=== PATIENT | male | born 1935 | race Caucasian/White ===

== ENCOUNTER → 2017-08-27 | Day surgery (SDC) | payer OTHER, MEDICARE ==
[2017-08-14 13:26] VITALS: BMI 22.0
[~2017-08-27] VITALS: Ht 185.4 cm; Wt 123.0 kg
[~2017-08-27] MED LIST: 500ML BSS 0.3ML EPI 1:1000PF IRRIG ONE; ACETAMINOPHEN 325 MG TAB PO PRN; AMVISC PLUS 0.8ML SYRINGE INT OCU ONE; ASPCH81X PO; ATOR10TA82 PO; ATROPINE SULFATE 0.1 MG/ML 5ML SYR IV PRN; BSS FLUSH ONE; CARV12.52 PO; DOXA-10 PO; EpHEDrine SULFATE INJ 50 MG/ML AMP IV PRN; EpINEphrine INJ 1MG/ML AMP 1 MG/ML AMP ONE; GLIP1TAB91 PO; HydrALAZINE HCL 20 MG/ML VIAL IV. ONE; HydrALAZINE HCL 20 MG/ML VIAL ONE; LABETALOL HCL IV 5 MG/ML 20ML IV ONE; LACTATED RINGER'S 1000ML 500 ML IV SCH; LIDOCAINE 3.5% OPH GEL PER APPLICATION CHARGE ONE; LIDOCAINE HCL 1% MPF 2 ML VIAL ONE; LISI40TA PO; MIDAZOLAM HCL 1 MG/ML 2ML VIAL ONE; NURSING VERBAL MED ORDER ONE; OCUCOAT 1 ML SOLN IO ONE; ONDANSETRON INJ 2 MG/ML 2 ML VIAL IV PRN; POVIDONE-IODINE OP SOLN 30 ML BTL ONE; PROPARACAINE 0.5% OP SOLN PER DROP CHARGE OPL SCH; TOBRAMYCIN/DEXAMETHASONE OPH OINT PER APPLN CHARGE ONE; WARF5TAB7 PO; WATER, STERILE FOR INJ 10 ML VIAL ONE
[2017-08-27 07:28] VITALS: Ht 185.4 cm; Wt 123.0 kg
[2017-08-27] MEDS: PHENYLEPHRINE HCL 2.5% OP SOLN PER DROP CHARGE OPL SCH ×2 (07:31→07:47)
[2017-08-27] MEDS: TROPICAMIDE 1% OP SOLN PER DROP CHARGE OPL SCH ×2 (07:32→07:49)
[2017-08-27] MEDS: CYCLOPENTOLATE HCL 1% OP SOLN PER DROP CHARGE OPL SCH ×2 (07:33→07:49)
[2017-08-27] MEDS: KETOROLAC 0.5% OP SOLN PER DROP CHARGE OPL SCH ×2 (07:34→07:50)
[2017-08-27] MEDS: GATIFLOXACIN OP SOLN PER DROP CHARGE OPL SCH ×2 (07:35→07:51)
--- NOTE | 2017-08-27 07:45 | History & Physical Bridge - [place] ---
H&P Re-Evaluation Bridge Note: I have examined the patient, reviewed the History & Physical and in the interval since the performance of the History & Physical I have noted the following changes of clinical significance: Diagnosis: Left Cataract Procedure: Left Cataract Removal with Lens Implant No changes noted
--- NOTE | 2017-08-27 08:53 | Discharge Instructions-SurgCtr ---
Discharge Instructions Date of Service Aug 27, 2017. Visit Reason for Visit: Cataract Left Eye Discharge Discharge Diagnosis / Problem: cataract Discharge Goals Goal(s): Improve function Activity Recommendations Activity Limitations: per Instructions/Follow-up section Anesthesia . Post Anesthesia Instructions: If you have had General Anesthesia or IV Sedation: * Do not drive today. * Resume driving when surgeon permits. * Do not make important decisions or sign legal documents today. * Call surgeon for: 1. Temperature elevations greater than 101 degrees F. 2. Uncontrollable pain. 3. Excessive bleeding. 4. Persistent nausea and vomiting. 5. Medication intolerance (nausea, vomiting or rash). * For nausea and vomiting use only clear liquids such as: tea, soda, bouillon until nausea subsides, then gradually increase diet as tolerated. * If you have any concerns or questions, call your surgeon's office. If physician is unavailable and it is an emergency, call 911 or go to the nearest emergency room. . Diet Recommendations Home Diet: resume previous diet Procedures Procedures Performed: Left Cataract Phacoemulsification With Intraocular Lens Implant Pending Studies Studies pending at discharge: no Medical Emergencies . Who to Call and When: Medical Emergencies: If at any time you feel your situation is an emergency, please call 911 immediately. . Non-Emergent Contact Non-Emergency issues call your: Chemistry Department Chair . . "Provider Documentation" section prepared by Abhishek Brandon. .
--- NOTE | 2017-08-27 08:54 | [facility] Operative Report ---
Operative Report Date of Service Aug 27, 2017. Operative Report 1. PREOPERATIVE DIAGNOSIS: Cataract of the left eye. 2. POSTOPERATIVE DIAGNOSIS: Same. 3. PROCEDURE: Phacoemulsification with intraocular lens implantation of the left eye. SURGEON: Dr. Abhishek Brandon. ANESTHESIA: Topical Lidocaine gel, 1% Non- Preserved intracameral Lidocaine, and monitored intravenous sedation. INDICATIONS FOR THE PROCEDURE: The patient is a 82 - year-old male with a history of cataract of the left eye causing significant visual impairment. The details of the proposed procedure were explained to the patient who asked appropriate questions and following discussion of all risks, benefits and alternatives agreed to have the procedure done. 4. OPERATION AND FINDINGS: DESCRIPTION OF PROCEDURE: After informed consent was obtained, the patient was brought to the Operating Room at the [facility]. The patient was placed in a supine position and then the left eye was prepped and draped in the usual sterile fashion for intraocular surgery. A drop of topical Lidocaine gel was placed in the operative eye. A wire lid speculum was then placed in the fornices. A corneal paracentesis was then created temporally. The Non-Preserved Lidocaine was then instilled into the anterior chamber. The anterior chamber was then pressurized with viscoelastic. A 2.0 mm clear corneal incision was then created temporally. A cystotome was inserted into the anterior chamber and used to create a tear in the anterior lens capsule. This capsular tear was then used to create a small flap and the flap was dragged in a counterclockwise direction in order to create a continuous curvilinear capsulorrhexis. Hydrodissection was accomplished with balanced salt solution. Phacoemulsification of the lens nucleus was then performed in a standard [id number]-cic-guxsren technique. The phaco time was 22 seconds with an average power of 13 %. The remaining cortical material was removed using irrigation aspiration. The capsular bag was then filled with viscoelastic. A [employer] MI60L +21.5 diopters lens was then loaded into the injector and injected into the capsular bag. The remaining viscoelastic was removed with the irrigation aspiration handpiece. The wound was hydrated and then checked and found to be watertight. The intraocular pressure was checked and found to be adequate. The wire lid speculum was removed and the patient's face was cleaned and dried. TobraDex ointment was placed in the inferior fornix. The patient was discharged to the Recovery Room having tolerated the procedure well. There were no complications. The patient will be seen tomorrow in the office for follow-up. I attest to the content of the Intraoperative Record and any orders documented therein. Any exceptions are noted below.
[2017-08-27 08:56] VITALS: TEMP 36.6
--- NOTE | 2017-08-27 09:22 | Anesthesia Progress Nt - [facility] ---
Anesthesia Post Op Note Date & Time Aug 27, 2017 at 09:18 Vital Signs Pain Intensity: 0 Vital Signs Past 12 Hours Date Time Temp Pulse Resp B/P (MAP) Pulse Ox O2 Delivery O2 Flow Rate FiO2 08/27/17 08:29 55 16 196/70 (112) 95 Room Air 08/27/17 08:26 198/87 (124) 08/27/17 07:40 48 16 207/96 (133) 94 Room Air 08/27/17 07:30 214/100 (138) 08/27/17 07:19 36.7 71 16 207/96 (133) 94 Room Air Notes Mental Status: alert / awake / arousable, participated in evaluation Pt Amnestic to Procedure: Yes Nausea / Vomiting: adequately controlled Pain: adequately controlled Airway Patency, RR, SpO2: stable & adequate BP & HR: stable & adequate Hydration State: stable & adequate Anesthetic Complications: no major complications apparent Mr. Johnson required several doses of hydralazine perioperatively for BP control. He has hx/o difficult to control BP and had not taken his antihypertensives on DOS (normally takes them at noon). Patient denied any vision changes, lightheadedness, headaches, chest pains or shortness of breath. He also endorsed that he was extremely nervous prior to surgery. Given that he was completely asymptomatic, I felt it was appropriate to treat this IV antihypertensives and proceed with surgery. This was done without incident. I spoke at length with patient and his both before and after surgery regarding management of his blood pressure. They know to go to ER if he experiences any symptoms that could indicate elevated BP (ROACH, vision changes, chest pains, etc) and they are also to call his primary care physician to make a follow up for further BP management as an outpatient (especially since he is due back here in several weeks for his other cataract). All questions were answered and patient was released under the care of his .
[2017-08-27 09:32] VITALS: BP 204/91; PULSE 76; O2SAT 96
== END | disposition home or self-care (01) ==
LOC: X.SURG 07:02
PROVIDERS: ATTEND Ophthalmology
DX: E11.36 Type 2 diabetes mellitus with diabetic cataract (principal); H26.9 Unspecified cataract; E78.5 Hyperlipidemia, unspecified; I48.91 Unspecified atrial fibrillation; N40.0 Benign prostatic hyperplasia without lower urinary tract symptoms; I87.2 Venous insufficiency (chronic) (peripheral); Z79.899 Other long term (current) drug therapy; Z79.01 Long term (current) use of anticoagulants; Z83.3 Family history of diabetes mellitus

== ENCOUNTER → 2017-09-17 | Day surgery (SDC) | payer OTHER, MEDICARE ==
[2017-09-05 09:44] VITALS: Ht 185.4 cm; Wt 77.3 kg
[~2017-09-17] VITALS: Ht 185.4 cm; Wt 77.3 kg
[~2017-09-17] MED LIST changes: -CARV12.52 PO; +CRG25 PO; -HydrALAZINE HCL 20 MG/ML VIAL IV. ONE; -LABETALOL HCL IV 5 MG/ML 20ML IV ONE; -NURSING VERBAL MED ORDER ONE; -ONDANSETRON INJ 2 MG/ML 2 ML VIAL IV PRN; -PROPARACAINE 0.5% OP SOLN PER DROP CHARGE OPL SCH; +PROPARACAINE 0.5% OP SOLN PER DROP CHARGE OPR SCH; -WATER, STERILE FOR INJ 10 ML VIAL ONE
[2017-09-17] MEDS: PHENYLEPHRINE HCL 2.5% OP SOLN PER DROP CHARGE OPR SCH ×2 (07:24→07:30)
[2017-09-17] MEDS: TROPICAMIDE 1% OP SOLN PER DROP CHARGE OPR SCH ×2 (07:25→07:31)
[2017-09-17] MEDS: CYCLOPENTOLATE HCL 1% OP SOLN PER DROP CHARGE OPR SCH ×2 (07:26→07:32)
[2017-09-17] MEDS: KETOROLAC 0.5% OP SOLN PER DROP CHARGE OPR SCH ×2 (07:27→07:33)
[2017-09-17] MEDS: GATIFLOXACIN OP SOLN PER DROP CHARGE OPR SCH ×2 (07:28→07:38)
--- NOTE | 2017-09-17 07:55 | History & Physical Bridge - [place] ---
H&P Re-Evaluation Bridge Note: I have examined the patient, reviewed the History & Physical and in the interval since the performance of the History & Physical I have noted the following changes of clinical significance: Diagnosis: Right Cataract Procedure: Right Cataract Removal with Lens Implant No changes noted
--- NOTE | 2017-09-17 08:39 | [facility] Operative Report ---
Operative Report Date of Service Sep 17, 2017. Operative Report 1. PREOPERATIVE DIAGNOSIS: Cataract of the right eye. 2. POSTOPERATIVE DIAGNOSIS: Same. 3. PROCEDURE: Phacoemulsification with intraocular lens implantation of the right eye. SURGEON: Dr. Abhishek Brandon. ANESTHESIA: Topical Lidocaine gel, 1% Non- Preserved intracameral Lidocaine, and monitored intravenous sedation. INDICATIONS FOR THE PROCEDURE: The patient is a 82 - year-old male with a history of cataract of the right eye causing significant visual impairment. The details of the proposed procedure were explained to the patient who asked appropriate questions and following discussion of all risks, benefits and alternatives agreed to have the procedure done. 4. OPERATION AND FINDINGS: DESCRIPTION OF PROCEDURE: After informed consent was obtained, the patient was brought to the Operating Room at the [facility]. The patient was placed in a supine position and then the right eye was prepped and draped in the usual sterile fashion for intraocular surgery. A drop of topical Lidocaine gel was placed in the operative eye. A wire lid speculum was then placed in the fornices. A corneal paracentesis was then created temporally. The Non-Preserved Lidocaine was then instilled into the anterior chamber. The anterior chamber was then pressurized with viscoelastic. A 2.0 mm clear corneal incision was then created temporally. A cystotome was inserted into the anterior chamber and used to create a tear in the anterior lens capsule. This capsular tear was then used to create a small flap and the flap was dragged in a counterclockwise direction in order to create a continuous curvilinear capsulorrhexis. Hydrodissection was accomplished with balanced salt solution. Phacoemulsification of the lens nucleus was then performed in a standard ipures-emc-eiwdbot technique. The phaco time was 27 seconds with an average power of 10 %. The remaining cortical material was removed using irrigation aspiration. The capsular bag was then filled with viscoelastic. A [employer]ch [employer] Lomb MI60L +21.5 diopters lens was then loaded into the injector and injected into the capsular bag. The remaining viscoelastic was removed with the irrigation aspiration handpiece. The wound was hydrated and then checked and found to be watertight. The intraocular pressure was checked and found to be adequate. The wire lid speculum was removed and the patient's face was cleaned and dried. TobraDex ointment was placed in the inferior fornix. The patient was discharged to the Recovery Room having tolerated the procedure well. There were no complications. The patient will be seen tomorrow in the office for follow-up. I attest to the content of the Intraoperative Record and any orders documented therein. Any exceptions are noted below.
--- NOTE | 2017-09-17 08:39 | Discharge Instructions-SurgCtr ---
Discharge Instructions Date of Service Sep 17, 2017. Visit Reason for Visit: Cataract Right Eye Discharge Discharge Diagnosis / Problem: cataract Discharge Goals Goal(s): Improve function Activity Recommendations Activity Limitations: per Instructions/Follow-up section Anesthesia . Post Anesthesia Instructions: If you have had General Anesthesia or IV Sedation: * Do not drive today. * Resume driving when surgeon permits. * Do not make important decisions or sign legal documents today. * Call surgeon for: 1. Temperature elevations greater than 101 degrees F. 2. Uncontrollable pain. 3. Excessive bleeding. 4. Persistent nausea and vomiting. 5. Medication intolerance (nausea, vomiting or rash). * For nausea and vomiting use only clear liquids such as: tea, soda, bouillon until nausea subsides, then gradually increase diet as tolerated. * If you have any concerns or questions, call your surgeon's office. If physician is unavailable and it is an emergency, call 911 or go to the nearest emergency room. . Diet Recommendations Home Diet: resume previous diet Procedures Procedures Performed: Right Cataract Phacoemulsification With Intraocular Lens Implant Pending Studies Studies pending at discharge: no Medical Emergencies . Who to Call and When: Medical Emergencies: If at any time you feel your situation is an emergency, please call 911 immediately. . Non-Emergent Contact Non-Emergency issues call your: Cotton Broker . . "Provider Documentation" section prepared by Abhishek Brandon. .
[2017-09-17 08:40] VITALS: TEMP 36.3
--- NOTE | 2017-09-17 08:59 | Anesthesia Progress Nt - [facility] ---
Anesthesia Post Op Note Date & Time Sep 17, 2017 at 08:58 Vital Signs Pain Intensity: 0 Vital Signs Past 12 Hours Date Time Temp Pulse Resp B/P (MAP) Pulse Ox O2 Delivery O2 Flow Rate FiO2 09/17/17 08:40 36.3 73 16 161/70 (100) 99 Room Air 09/17/17 07:14 36.8 60 22 210/82 (124) 95 Room Air 203/82 (122) Notes Mental Status: alert / awake / arousable, participated in evaluation Pt Amnestic to Procedure: Yes Nausea / Vomiting: adequately controlled Pain: adequately controlled Airway Patency, RR, SpO2: stable & adequate BP & HR: stable & adequate Hydration State: stable & adequate Anesthetic Complications: no major complications apparent
[2017-09-17 09:02] VITALS: BP 176/82; PULSE 66; O2SAT 97
== END | disposition home or self-care (01) ==
LOC: X.SURG 06:31
PROVIDERS: ATTEND Ophthalmology
DX: H26.9 Unspecified cataract (principal); E11.36 Type 2 diabetes mellitus with diabetic cataract; E11.22 Type 2 diabetes mellitus with diabetic chronic kidney disease; N18.9 Chronic kidney disease, unspecified; I48.0 Paroxysmal atrial fibrillation; E78.5 Hyperlipidemia, unspecified; N40.1 Benign prostatic hyperplasia with lower urinary tract symptoms; N13.8 Other obstructive and reflux uropathy; E11.29 Type 2 diabetes mellitus with other diabetic kidney complication; R80.9 Proteinuria, unspecified; I12.9 Hypertensive chronic kidney disease with stage 1 through stage 4 chronic kidney disease, or unspecified chronic kidney disease; I87.2 Venous insufficiency (chronic) (peripheral); E11.51 Type 2 diabetes mellitus with diabetic peripheral angiopathy without gangrene; Z79.01 Long term (current) use of anticoagulants; Z79.82 Long term (current) use of aspirin; Z79.899 Other long term (current) drug therapy; I25.10 Atherosclerotic heart disease of native coronary artery without angina pectoris; Z79.84 Long term (current) use of oral hypoglycemic drugs; E66.9 Obesity, unspecified; Z68.39 Body mass index [BMI] 39.0-39.9, adult

== ENCOUNTER 2019-11-14 17:11 | Inpatient (IN) ==
[2019-11-14] MEDS ORDERED: FUROSEMIDE 40 MG/4 ML VIAL IV STA (17:30)
[2019-11-14] MEDS ORDERED: NITROGLYCERIN 2% OINTMENT 30GM TUBE EXT STA (17:44)
--- NOTE | 2019-11-14 17:52 | XRay Report ---
XR chest 1V portable CLINICAL HISTORY: Dyspnea COMPARISON STUDY: 11/20/2011 FINDINGS: The heart is enlarged. There is no focal pulmonary consolidation. There is no overt failure . There are no pleural effusions.[ IMPRESSION: No active disease in the chest. ACT 112: Negative or not required by law. Electronically signed by: Roman Foley M.D. 11/14/2019 5:50 PM
[2019-11-14 17:53] LABS: Basophils # (auto) 0.01 K/uL (0-0.2); Basophils % (auto) 0.1 %; Eosinophils # (auto) 0.13 K/uL (0-0.5); Eosinophils % (auto) 1.7 %; Hematocrit (blood only) 38.8 % (42-52); Hemoglobin 13.1 g/dL (14.0-18.0); Immature Granulocytes # (auto) 0.01 K/uL (0.00-0.02); Immature Granulocytes % (auto) 0.1 %; Lymphocytes % (auto) 14.3 %; Mean Corpuscular Hemoglobin 30.2 pg (25-34); Mean Corpuscular Hgb Conc 33.8 g/dL (32-36); Mean Corpuscular Volume 89.4 fL (80-100); Mean Platelet Volume 10.2 fL (7.4-10.4); Monocytes # (auto) 0.96 K/uL (0.11-0.59); Monocytes % (auto) 12.5 %; Neutrophils # (auto) 5.47 K/uL (1.4-6.5); Neutrophils % (auto) 71.3 %; Platelet Count 226 K/uL (130-400); RDW Coefficient of Variation 14.5 % (11.5-14.5); RDW Standard Deviation 47.8 fL (36.4-46.3); Red Blood Count 4.34 M/uL (4.7-6.1); White Blood Count 7.68 K/uL (4.8-10.8)
[2019-11-14 18:10] LABS: INR 1.4 (0.9-1.1); Partial Thromboplastin Time 27.1 Seconds (21.0-31.0); Prothrombin Time 14.2 Seconds (9.0-12.0)
[2019-11-14 18:14] LABS: Alanine Aminotransferase 30 U/L (12-78); Albumin Level 3.4 gm/dl (3.4-5.0); Aspartate Aminotransferase 19 U/L (15-37); BUN Creatinine Ratio 17.9 (10-20); Blood Urea Nitrogen 15 mg/dl (7-18); Calcium 8.5 mg/dl (8.5-10.1); Carbon Dioxide 29 mmol/L (21-32); Chloride 100 mmol/L (98-107); Creatinine Clr Calc Pharmacy 89.9 ml/min; Est GFR (African American) 93.4; Est GFR (Non-African American) 80.6; Glucose 243 mg/dl (70-99); Magnesium 1.9 mg/dl (1.8-2.4); Potassium 3.5 mmol/L (3.5-5.1); Sodium 135 mmol/L (136-145)
[2019-11-14 18:19] LABS: Albumin Globulin Ratio 0.9 (0.9-2); Alkaline Phosphatase 54 U/L (45-117); Bilirubin,Total 0.8 mg/dl (0.2-1); Globulin 3.6 gm/dl (2.5-4.0); Influenza A virus by PCR Neg for Influ A (Neg); Influenza B virus by PCR Neg for Influ B (Neg); NT Pro B Type Natriuretic Pept 976 pg/ml (0-1800); Troponin I < 0.015 ng/ml (0-0.045)
[2019-11-14] MEDS ORDERED: ALBUT/IPRATROP 3MG/0.5MG NEB 3 ML VIAL NEB STA ×2 (18:21→20:25)
[2019-11-14 18:54] LABS: Appearance Urine Clear (Clear); Bacteria Urine Automated Negative (Negative); Bilirubin Urine Negative (Negative); Blood Urine 1+ (Negative); Color Urine Yellow; Glucose Urine UA 3+ (Negative); Ketones Urine Negative (Negative); Leukocyte Esterase Urine Negative (Negative); Nitrite Urine Negative (Negative); Protein Urine 2+ (Negative); RBC Urine Automated 0-4 /hpf (0-4); Specific Gravity Urine 1.015 (1.000-1.030); Urobilinogen Urine Negative (Negative); pH Urine 5.5 (4.5-7.5)
[2019-11-14] MEDS ORDERED: HydrALAZINE HCL 20 MG/ML VIAL IV STA (20:01)
--- NOTE | 2019-11-14 20:57 | Emergency Department Note ---
Entered by Genna Hawk acting as a scribe for History of Present Illness General Chief complaint: Illness Stated complaint: MEDS NOT WORKING, CONGESTION, SICKNESS Time Seen by Provider: 11/14/19 17:25 Source: patient and family Mode of arrival: ambulatory Limitations: no limitations History of Present Illness Provider complaint: Shortness of breath Onset (ago): day(s) 5 Location: chest Pain Consistency: + other (worsening) Quality: + other (shortness of breath) Associated symptoms: + cough (productive) and + other (Additional symptoms: leg swelling); no chest pain and no fever/chills The patient is an 84 year old male with a history of atrial fibrillation on Warfarin, diabetes, hypertension, hyperlipidemia, cardiac catheterization, and cholecystectomy who presents to the Emergency Room with complaints of worsening shortness of breath starting 5 days ago. The patient reports that his shortness of breath has been accompanied by a productive cough but no chest pain and fevers. His family states that he had a temperature of 99 F the first day that he started experiencing symptoms, but they note that it decreased to 98 F the next day. They add that the patient's legs are swollen at baseline and that he was instructed to increase his furosemide dose to 40 mg BID over a month ago. They explain that the patient was at the [facility] 3 days ago for his symptoms and given amoxicillin and Tessalon Perles, which he started taking yesterday. They indicate that the patient has no history of heart failure and that he follows Dr. Burgos for cardiology. They note that the patient is next scheduled to see him in a few months because the patient's last visit was unremarkable. Per family, the patient's blood sugar level has been controlled as of late. Home Medications Home Medications Medication Instructions Recorded Confirmed Type aspirin 81 mg PO QAM 10/06/19 11/14/19 History atorvastatin 10 mg PO QAM 10/06/19 11/14/19 History carvedilol 25 mg PO QAM 10/06/19 11/14/19 History doxazosin 16 mg PO HS 10/06/19 11/14/19 History furosemide 40 mg PO BID 10/06/19 11/15/19 History glipizide 5 mg PO BID 10/06/19 11/14/19 History lisinopril 40 mg PO QAM 01/07/20 02/15/20 History metformin 500 mg PO BID 10/06/19 11/14/19 History warfarin [Coumadin] 5 mg PO QPM 10/06/19 11/14/19 History Allergies Allergy/AdvReac Type Severity Reaction Status Date / Time No Known Allergies Allergy Unverified 11/14/19 18:05 Past Med/Surg History Medical History Atrial fibrillation DX 2012 - FOLLOWS W/ DR. BURGOS - ON WARFARIN Diabetes mellitus, type 2 NIDDM History of colon polyps HTN (hypertension) Hyperlipemia Poor historian Surgical History History of cardiac cath 2-3 YEARS AGO - NO STENTS History of cataract surgery History of cholecystectomy History of colonoscopy Family History Other No family history of adverse response to anesthesia Social History Preferred Language: Kazakh Communication Ability: Effective [employer] Required: No Beliefs That Will Affect Care: None Current Living Situation: Spouse Other Information That Helps Us Care for You: No Feels Safe at Home: Yes Safety Concerns: Feels Safe At This Time Smoking Status: Never smoker Hx Alcohol Use: No Hx Substance Use: No Review of Systems See HPI for pertinent positives & negatives. and A total of 10 systems reviewed and were otherwise negative Physical Exam Vital Signs Vital Signs - 24 hr 11/14/19 18:39 11/14/19 18:40 11/14/19 18:50 Pulse Rate 74 54 L Pulse Rate [Finger] 76 Pulse Rate from SpO2 Sensor 71 70 Respiratory Rate 20 33 H 22 Respiratory Effort / Characteristics Non-Labored Spontaneous Blood Pressure Blood Pressure Mean Pulse Oximetry 90 90 Oxygen Delivery Method Room Air Room Air Room Air 11/14/19 19:00 11/14/19 19:01 11/14/19 19:10 Pulse Rate 55 L 52 L 59 L Pulse Rate [Finger] Pulse Rate from SpO2 Sensor 61 66 58 L Respiratory Rate 28 H 25 H 19 Respiratory Effort / Characteristics Blood Pressure 156/78 H Blood Pressure Mean 117 Pulse Oximetry 91 92 Oxygen Delivery Method Room Air Room Air Room Air 11/14/19 19:20 11/14/19 19:30 11/14/19 19:31 Pulse Rate 61 66 58 L Pulse Rate [Finger] Pulse Rate from SpO2 Sensor 61 52 L 58 L Respiratory Rate 23 30 H 25 H Respiratory Effort / Characteristics Blood Pressure 187/118 H Blood Pressure Mean 144 Pulse Oximetry 90 93 93 Oxygen Delivery Method Room Air Room Air Room Air 11/14/19 19:32 11/14/19 19:40 11/14/19 19:50 Pulse Rate 58 L 63 65 Pulse Rate [Finger] Pulse Rate from SpO2 Sensor 61 69 59 L Respiratory Rate 25 H 21 33 H Respiratory Effort / Characteristics Blood Pressure Blood Pressure Mean Pulse Oximetry 92 92 91 Oxygen Delivery Method Room Air Room Air Room Air 11/14/19 20:00 11/14/19 20:01 11/14/19 20:10 Pulse Rate 59 L 59 L 55 L Pulse Rate [Finger] Pulse Rate from SpO2 Sensor 61 62 60 Respiratory Rate 24 32 H 22 Respiratory Effort / Characteristics Blood Pressure 170/74 H Blood Pressure Mean 126 Pulse Oximetry 91 91 91 Oxygen Delivery Method Room Air Room Air Room Air 11/14/19 20:20 11/14/19 20:30 11/14/19 20:31 Pulse Rate 52 L 64 72 Pulse Rate [Finger] Pulse Rate from SpO2 Sensor 51 L 66 70 Respiratory Rate 31 H 36 H 32 H Respiratory Effort / Characteristics Blood Pressure 175/65 H Blood Pressure Mean 121 Pulse Oximetry 91 92 92 Oxygen Delivery Method Room Air Room Air Room Air 11/14/19 20:33 11/14/19 20:40 11/14/19 20:50 Pulse Rate 65 75 Pulse Rate [Finger] 67 Pulse Rate from SpO2 Sensor 68 78 Respiratory Rate 20 23 30 H Respiratory Effort / Characteristics Non-Labored Spontaneous Blood Pressure Blood Pressure Mean Pulse Oximetry 92 92 91 Oxygen Delivery Method Room Air Room Air Room Air 11/14/19 21:00 11/14/19 21:10 11/14/19 21:20 Pulse Rate 60 74 72 Pulse Rate [Finger] Pulse Rate from SpO2 Sensor 62 71 70 Respiratory Rate 26 H 24 26 H Respiratory Effort / Characteristics Blood Pressure 165/70 H Blood Pressure Mean 141 Pulse Oximetry 92 94 93 Oxygen Delivery Method Room Air Room Air Room Air 11/14/19 21:30 11/14/19 21:31 11/14/19 21:40 Pulse Rate 69 80 72 Pulse Rate [Finger] Pulse Rate from SpO2 Sensor 78 79 Respiratory Rate 23 30 H 22 Respiratory Effort / Characteristics Blood Pressure 174/74 H Blood Pressure Mean 112 Pulse Oximetry 93 94 Oxygen Delivery Method Room Air Room Air Room Air Vital signs reviewed. General: Elderly, chronically ill-appearing male, in no significant distress. HEENT: No scleral icterus, PERRLA, neck supple. Atraumatic. Cardiovascular: Regular rate and rhythm, no extra sounds. Pulmonary: Coarse breath sounds bilaterally, gurgling. Abdomen: Soft, nontender, nondistended, positive bowel sounds. Obese. Musculoskeletal: Atraumatic, no peripheral edema. Neurologic: Patient awake alert and oriented x 3. Skin: Warm, dry, no rash Course Course 1725: The patient was evaluated in room B6, and a complete history and physical examination were performed. 2029: I checked on the patient and updated him and his family on his results. They verbalized agreement of the treatment plan. 2034: I reviewed the patient's case with Dr. Joshua Morrison. Dr. Lewis will evaluate the patient for further management. Consultations Consultation #1: I reviewed the patient's case with Dr. Joshua Morrison. Dr. Lewis will evaluate the patient for further management. Time: 20:35 Administered Medications Aspirin (Ecotrin Ectab) 81 mg PO QAM [facility] Stop: 12/15/19 08:59 Last Admin: 11/15/19 08:02 Dose: 81 mg Documented by: [id number] Atorvastatin Calcium (Lipitor) 10 mg PO QAM [facility] Stop: 12/15/19 08:59 Last Admin: 11/15/19 08:02 Dose: 10 mg Documented by: [id number] Carvedilol (Coreg) 25 mg PO BID [facility] Stop: 12/15/19 08:59 Last Admin: 11/15/19 08:03 Dose: 25 mg Documented by: [id number] Doxazosin Mesylate (Cardura) 16 mg PO HS [facility] Stop: 12/14/19 23:15 Last Admin: 11/14/19 23:48 Dose: 16 mg Documented by: [id number] Doxycycline Hyclate (Vibramycin) 100 mg PO BID [facility] Stop: 11/22/19 08:59 Last Admin: 11/15/19 08:03 Dose: 100 mg Documented by: [id number] Enoxaparin Sodium (Lovenox) 30 mg SQ QAM [facility] Stop: 12/15/19 08:59 Last Admin: 11/15/19 08:03 Dose: 30 mg Documented by: [id number] Hydralazine HCl (Hydralazine Hcl) 10 mg IV Q6H PRN PRN Reason: for SBP above 170 Stop: 12/15/19 15:29 Last Admin: 11/15/19 15:42 Dose: 10 mg Documented by: [id number] Lactated Ringer's (Lr) 1,000 mls @ 50 mls/hr IV .Q20H ONE Stop: 11/15/19 19:15 Last Admin: 11/14/19 23:44 Dose: 50 mls/hr Documented by: [id number] Insulin Aspart (Novolog Flexpen) 0 units SC ACHS [facility] Stop: 12/14/19 23:15 Last Admin: 11/15/19 17:27 Dose: 3 units Documented by: [id number] Cosigned by: [id number] Admin: 11/15/19 12:42 Dose: 5 units Documented by: [id number] Cosigned by: [id number] Admin: 11/15/19 08:04 Dose: 5 units Documented by: [id number] Cosigned by: [id number] Admin: 11/14/19 23:50 Dose: 2 units Documented by: [id number] Cosigned by: [id number] Ioversol (Optiray 320 125ml) 118 ml IV ONCE PRN PRN Reason: Interaction Checking Stop: 11/19/19 15:34 Last Admin: 11/15/19 15:36 Dose: 1 ml Documented by: [id number] Ipratropium Coldiron (Atrovent 0.02% 0.5mg/2.5ml) 0.5 mg INH Q6R [facility] Stop: 12/15/19 00:59 Last Admin: 11/15/19 13:29 Dose: 0.5 mg Documented by: [id number] Admin: 11/15/19 07:15 Dose: 0.5 mg Documented by: [id number] Admin: 11/15/19 01:33 Dose: 0.5 mg Documented by: [id number] Levalbuterol HCl (Xopenex 1.25mg/0.5ml Neb) 1.25 mg INH Q6R [facility] Stop: 12/15/19 00:59 Last Admin: 11/15/19 13:29 Dose: 1.25 mg Documented by: [id number] Admin: 11/15/19 07:15 Dose: 1.25 mg Documented by: [id number] Admin: 11/15/19 01:33 Dose: 1.25 mg Documented by: [id number] Lisinopril (Zestril) 40 mg PO QAM [facility] Stop: 12/15/19 08:59 Last Admin: 11/15/19 08:02 Dose: 40 mg Documented by: [id number] Warfarin Sodium (Coumadin) 5 mg PO DAILY@1600 [facility] Stop: 12/15/19 15:59 Last Admin: 11/15/19 15:43 Dose: 5 mg Documented by: [id number] Discontinued Medications Albuterol (Duoneb) 3 ml NEB NOW STA Stop: 11/14/19 18:22 Last Admin: 11/14/19 18:38 Dose: 3 ml Documented by: [id number] Albuterol (Duoneb) 3 ml NEB NOW STA Stop: 11/14/19 20:26 Last Admin: 11/14/19 20:33 Dose: 3 ml Documented by: [id number] Carvedilol (Coreg) 25 mg PO NOW STA Stop: 11/14/19 22:00 Last Admin: 11/14/19 22:37 Dose: 25 mg Documented by: [id number] Furosemide (Lasix) 40 mg IV NOW STA Stop: 11/14/19 17:31 Last Admin: 11/14/19 17:43 Dose: 40 mg Documented by: [id number] Furosemide (Lasix) 80 mg PO DAILY [facility] Stop: 12/15/19 10:14 Last Admin: 11/15/19 11:00 Dose: 40 mg Documented by: [id number] Hydralazine HCl (Hydralazine Hcl) 10 mg IV NOW STA Stop: 11/14/19 20:02 Last Admin: 11/14/19 20:18 Dose: 10 mg Documented by: [id number] Doxycycline Hyclate 100 mg/ (Dextrose) 110 mls @ 50 mls/hr IV NOW STA Stop: 11/15/19 01:27 Last Infusion: 11/15/19 02:32 Dose: 0 mls/hr Documented by: [id number] Admin: 11/14/19 23:49 Dose: 50 mls/hr Documented by: [id number] Insulin Glargine (Lantus Solostar Pen) 15 units SC NOW STA Stop: 11/14/19 21:43 Last Admin: 11/14/19 22:38 Dose: 15 units Documented by: [id number] Cosigned by: [id number] Methylprednisolone (Solumedrol) 20 mg IV NOW STA Stop: 11/14/19 21:43 Last Admin: 11/14/19 22:38 Dose: 20 mg Documented by: [id number] Nitroglycerin (Nitro-Bid 2%) 1 inch EXT NOW STA Stop: 11/14/19 17:45 Last Admin: 11/14/19 17:49 Dose: 1 inch Documented by: [id number] Potassium Chloride (Klor-Con M10) 50 meq PO NOW STA Stop: 11/14/19 21:06 Last Admin: 11/14/19 21:36 Dose: 50 meq Documented by: [id number] Prednisone (Prednisone) 20 mg PO NOW STA Stop: 11/15/19 14:02 Last Admin: 11/15/19 15:07 Dose: 20 mg Documented by: [id number] Warfarin Sodium (Coumadin) 5 mg PO NOW STA Stop: 11/14/19 21:44 Last Admin: 11/14/19 22:37 Dose: 5 mg Documented by: [id number] Medical Decision Making Differential Diagnosis Differential diagnosis includes: infections, reactive airway disease, pneumonia, pneumothorax, COPD, CHF, cardiac ischemia, pulmonary embolism, musculoskeletal, gastrointestinal, as well as others were entertained. Medical Records Attestation: I reviewed the patient's medical records. Home Medications Current Medication List: was personally reviewed by me Laboratory Data Attestation: I reviewed the patient's lab results. Result diagrams: 11/15/19 05:58 11/15/19 05:58 Lab Results 11/14/19 11/14/19 11/14/19 Range/Units 17:39 17:39 17:39 WBC 7.68 (4.8-10.8) K/uL RBC 4.34 L (4.7-6.1) M/uL Hgb 13.1 L (14.0-18.0) g/dL Hct 38.8 L (42-52) % MCV 89.4 (80-100) fL MCH 30.2 (25-34) pg MCHC 33.8 (32-36) g/dL RDW Std Deviation 47.8 H (36.4-46.3) fL RDW Coeff of Tonya 14.5 (11.5-14.5) % Plt Count 226 (130-400) K/uL MPV 10.2 (7.4-10.4) fL Immature Gran % (Auto) 0.1 % Neut % (Auto) 71.3 % Lymph % (Auto) 14.3 % [place] % (Auto) 12.5 % Eos % (Auto) 1.7 % Baso % (Auto) 0.1 % Immature Gran # (Auto) 0.01 (0.00-0.02) K/uL Neut # (Auto) 5.47 (1.4-6.5) K/uL Lymph # (Auto) 1.10 L (1.2-3.4) K/uL [place] # (Auto) 0.96 H (0.11-0.59) K/uL Eos # (Auto) 0.13 (0-0.5) K/uL Baso # (Auto) 0.01 (0-0.2) K/uL PT 14.2 H (9.0-12.0) Seconds INR 1.4 H (0.9-1.1) APTT 27.1 (21.0-31.0) Seconds PTT Ratio 1.0 D-Dimer (0-500) ug/L FEU Sodium 135 L (136-145) mmol/L Potassium 3.5 (3.5-5.1) mmol/L Chloride 100 (98-107) mmol/L Carbon Dioxide 29 (21-32) mmol/L Anion Gap 6.0 (3-11) BUN 15 (7-18) mg/dl Creatinine 0.85 (0.6-1.4) mg/dl Est Cr Clr Drug Dosing 89.9 ml/min Est GFR ( Amer) 93.4 Est GFR (Non-Af Amer) 80.6 BUN/Creatinine Ratio 17.9 (10-20) Glucose 243 H (70-99) mg/dl Calcium 8.5 (8.5-10.1) mg/dl Magnesium 1.9 (1.8-2.4) mg/dl Total Bilirubin 0.8 (0.2-1) mg/dl AST 19 (15-37) U/L ALT 30 (12-78) U/L Alkaline Phosphatase 54 (45-117) U/L Troponin I < 0.015 (0-0.045) ng/ml NT-Pro-B Natriuret Pep 976 (0-1800) pg/ml Total Protein 7.0 (6.4-8.2) gm/dl Albumin 3.4 (3.4-5.0) gm/dl Globulin 3.6 (2.5-4.0) gm/dl Albumin/Globulin Ratio 0.9 (0.9-2) Urine Color Urine Appearance (Clear) Urine pH (4.5-7.5) Ur Specific [place] (1.000-1.030) Urine Protein (Negative) Urine Glucose (UA) (Negative) Urine Ketones (Negative) Urine Blood (Negative) Urine Nitrite (Negative) Urine Bilirubin (Negative) Urine Urobilinogen (Negative) Ur Leukocyte Esterase (Negative) Urine WBC (Auto) (0-5) /hpf Urine RBC (Auto) (0-4) /hpf U Hyaline Cast (Auto) (0-5) /lpf U Epithel Cells (Auto) (0-5) /lpf Urine Bacteria (Auto) (Negative) Influenza Type A (PCR) (Neg) Influenza Type B (PCR) (Neg) 11/14/19 11/14/19 11/14/19 Range/Units 17:39 17:39 18:21 WBC (4.8-10.8) K/uL RBC (4.7-6.1) M/uL Hgb (14.0-18.0) g/dL Hct (42-52) % MCV (80-100) fL MCH (25-34) pg MCHC (32-36) g/dL RDW Std Deviation (36.4-46.3) fL RDW Coeff of Tonya (11.5-14.5) % Plt Count (130-400) K/uL MPV (7.4-10.4) fL Immature Gran % (Auto) % Neut % (Auto) % Lymph % (Auto) % [place] % (Auto) % Eos % (Auto) % Baso % (Auto) % Immature Gran # (Auto) (0.00-0.02) K/uL Neut # (Auto) (1.4-6.5) K/uL Lymph # (Auto) (1.2-3.4) K/uL [place] # (Auto) (0.11-0.59) K/uL Eos # (Auto) (0-0.5) K/uL Baso # (Auto) (0-0.2) K/uL PT (9.0-12.0) Seconds INR (0.9-1.1) APTT (21.0-31.0) Seconds PTT Ratio D-Dimer 380 (0-500) ug/L FEU Sodium (136-145) mmol/L Potassium (3.5-5.1) mmol/L Chloride (98-107) mmol/L Carbon Dioxide (21-32) mmol/L Anion Gap (3-11) BUN (7-18) mg/dl Creatinine (0.6-1.4) mg/dl Est Cr Clr Drug Dosing ml/min Est GFR ( Amer) Est GFR (Non-Af Amer) BUN/Creatinine Ratio (10-20) Glucose (70-99) mg/dl Calcium (8.5-10.1) mg/dl Magnesium (1.8-2.4) mg/dl Total Bilirubin (0.2-1) mg/dl AST (15-37) U/L ALT (12-78) U/L Alkaline Phosphatase (45-117) U/L Troponin I (0-0.045) ng/ml NT-Pro-B Natriuret Pep (0-1800) pg/ml Total Protein (6.4-8.2) gm/dl Albumin (3.4-5.0) gm/dl Globulin (2.5-4.0) gm/dl Albumin/Globulin Ratio (0.9-2) Urine Color Yellow Urine Appearance Clear (Clear) Urine pH 5.5 (4.5-7.5) Ur Specific [place] 1.015 (1.000-1.030) Urine Protein 2+ H (Negative) Urine Glucose (UA) 3+ H (Negative) Urine Ketones Negative (Negative) Urine Blood 1+ H (Negative) Urine Nitrite Negative (Negative) Urine Bilirubin Negative (Negative) Urine Urobilinogen Negative (Negative) Ur Leukocyte Esterase Negative (Negative) Urine WBC (Auto) 1-5 (0-5) /hpf Urine RBC (Auto) 0-4 (0-4) /hpf U Hyaline Cast (Auto) 1-5 (0-5) /lpf U Epithel Cells (Auto) 5-10 H (0-5) /lpf Urine Bacteria (Auto) Negative (Negative) Influenza Type A (PCR) Neg for Influ A (Neg) Influenza Type B (PCR) Neg for Influ B (Neg) Imaging Data Radiologist's Impression: Radiology results as stated below per my review and the radiologist's interpretation: XR chest 1V portable CLINICAL HISTORY: Dyspnea COMPARISON STUDY: 11/20/2011 FINDINGS: The heart is enlarged. There is no focal pulmonary consolidation. There is no overt failure. There are no pleural effusions.[ IMPRESSION: No active disease in the chest. ACT 112: Negative or not required by law. Electronically signed by: Roman Foley M.D. 11/14/2019 5:50 PM ECG Data Attestation: I personally reviewed and interpreted this ECG as follows: Indication: + SOB/dyspnea Rate (beats per minute): 70 Rhythm: + atrial fibrillation ECG Intervals/blocks: + Incomplete right bundle branch block ECG [place]: + Right axis deviation ECG Findings: + Other (poor quality baseline for interpretation, ST changes); no PACs and no PVCs Additional Comments: An order for cardiac monitoring was placed and the patient is found to be in a rate controlled atrial fibrillation at 73 bpm. Blood Pressure Blood Pressure Findings: Elevated blood pressure Blood Pressure Disposition: further management by hospitalist MDM Narrative This patient was evaluated and appeared to be in no significant distress. IV access was obtained and laboratory work was drawn. The patient was placed on the monitor technician and found to be in a rate controlled atrial fibrillation. Physical examination reveals coarse breath sounds and rhonchi bilaterally. With the patient's marked hypertension, there is concern for congestive heart failure. Patient was medicated with 40 mg of IV Lasix and also a DuoNeb treatment. Patient was given 1 inch of Nitropaste to the anterior chest wall due to marked hypertension. Chest x-ray was performed and reveals no focal lung consolidation or failure. The EKG reveals the rate controlled atrial fibrillation without acute ischemia. Laboratory work reveals a negative troponin and a BNP of 976. Patient's white blood cell count is 7.68. Patient's blood pressure remained elevated and he was medicated with 10 mg of IV hydralazine. Given the patient's multiple medical problems, hypertensive urgency, failed outpatient antibiotics for bronchitis, the patient will be evaluated by the hospitalist service for further management. Impression & Plan Hypertensive urgency, Bronchitis, Fluid retention in legs Discharge Plan Visit Data *Final* Discharge Date/Time: 11/14/19 22:54 Chief Complaint: Illness Stated Complaint: MEDS NOT WORKING, CONGESTION, SICKNESS ED Provider: Adriana Jorgensen Discharge Problem: Hypertensive urgency, Bronchitis, Fluid retention in legs Patient Disposition: Admitted As Inpatient Discharge Instructions Interventions: ED Discharge Assessment Last Done: 11/14/19 22:54 The scribe's documentation has been prepared under my direction and personally reviewed by me in its entirety. I confirm that the note above accurately reflects all work, treatment, procedures, and medical decision making performed by me.
[2019-11-14] MEDS ORDERED: POTASSIUM CHLORIDE 10 MEQ TABCR PO STA (21:05)
[2019-11-14 21:17] LABS: D Dimer 380 ug/L FEU (0-500)
[2019-11-14] MEDS ORDERED: INSULIN GLARGINE SOLOSTAR 100 UNITS/ML 3 ML PEN SC STA (21:42)
[2019-11-14] MEDS ORDERED: WARFARIN SOD 5 MG TAB PO STA (21:43)
--- NOTE | 2019-11-14 21:43 | History & Physical Report ---
Date of Service November 14, 2019 Assessment & Plan (1) SOB (shortness of breath): Secondary to complicated bronchitis No sepsis Failed outpatient Rx A. fib on Coumadin, rate controlled INR subtherapeutic hypertension, elevated secondary to illness hyperlipidemia on statin Rx DM 2 on oral medications, reasonable control as of recent outpatient hemoglobin A1c of 7.04 July 2019 chronic anemia, hemoglobin at baseline chronic venous insufficiency on diuretic Rx OBS Medical telemetry given elevated BP Doxycycline, nebs RTC Solu-Medrol 1 dose Facilitate home BP meds, may need titration IVF for now, hold home diuretic until patient euvolemic. Basal insulin, ISS BG goal [id number], carb count coverage, update hemoglobin A1c DVT prophylaxis Coumadin INR goal between 2 and 3; Lovenox SQ daily while INR subtherapeutic Full code History of Present Illness Chief Complaint: Worsening cough, S OB Primary Care Provider: Daniela Broderick MD History obtained from patient, family, and records. Medical history significant for A. fib status post cardioversion on Coumadin, hypertension, hyperlipidemia, DM 2 on oral medications, BPH, chronic anemia baseline hemoglobin of 13, chronic venous insufficiency on diuretic Rx. Recent confinement October 2011 for pancreatitis. 5 days history of chest congestion, junky cough productive of yellow-green sputum, shortness of breath. No chest pain. No unusual fluid retention/leg swelling. No weight gain as per patient. No known sick contacts. No aspiration. Patient seen at PCPs office 2 days ago. Amoxicillin and Tessalon Perles prescribed for complicated bronchitis. Patient brought to ER by family for worsening symptoms. Patient given Lasix, Nitropaste for possible CHF. Patient does not feel any better. Medical History as above TTE July 2019: EF 55 to 59%. Mild concentric LVH. Left atrial enlargement. Moderate aortic valve sclerosis. 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 Allergies Allergy/AdvReac Type Severity Reaction Status Date / Time No Known Allergies Allergy Unverified 11/14/19 18:05 Home Medications Home Medications Medication Instructions Recorded Confirmed Type aspirin 81 mg PO QAM 10/06/19 11/14/19 History atorvastatin 10 mg PO QAM 10/06/19 11/14/19 History carvedilol 25 mg PO QAM 10/06/19 11/14/19 History doxazosin 16 mg PO HS 10/06/19 11/14/19 History furosemide 40 mg PO BID 10/06/19 11/14/19 History glipizide 5 mg PO BID 10/06/19 11/14/19 History lisinopril 40 mg PO QAM 10/06/19 11/14/19 History metformin 500 mg PO BID 10/06/19 11/14/19 History warfarin [Coumadin] 5 mg PO QPM 10/06/19 11/14/19 History Past Med/Surg History Medical History Atrial fibrillation DX 2011 - FOLLOWS W/ DR. 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 Required: No Beliefs That Will Affect Care: None Current Living Situation: Spouse Other Information That Helps Us Care for You: No Feels Safe at Home: Yes Safety Concerns: Feels Safe At This Time Smoking Status: Never smoker Hx Alcohol Use: No Hx Substance Use: No Review of Systems Review of Systems: As per HPI, all 10 systems reviewed, all other ROS negative Physical Exam Physical Exam: GENERAL: Slightly uncomfortable, obese, no respiratory distress SKIN: Pallor , warm HEENT: Alopecia, pale palpebral conjunctivae, no ptosis, dry buccal mucosa NECK : Supple, short neck, no tenderness CHEST : Decreased breath sounds, occasional expiratory wheezes, no tenderness HEART : Irregular , no obvious murmurs ABDOMEN: Some distention, nontender EXTREMITIES : Chronic LE venous stasis, no LE tenderness, no other conspicuous deformities noted NEUROLOGIC : Coherent, no facial asymmetry, no other gross focality Results & Data Vital Signs (Past 12 Hours) Vital Signs Temp Pulse Pulse Resp BP Pulse Ox 11/14/19 20:33 67 20 92 11/14/19 20:10 55 L 22 91 11/14/19 20:01 59 L 32 H 91 11/14/19 20:00 59 L 24 170/74 H 91 11/14/19 19:50 65 33 H 91 11/14/19 19:40 63 21 92 11/14/19 19:32 58 L 25 H 92 11/14/19 19:31 58 L 25 H 187/118 H 93 11/14/19 19:30 66 30 H 93 11/14/19 19:20 61 23 90 11/14/19 19:10 59 L 19 92 11/14/19 19:01 52 L 25 H 11/14/19 19:00 55 L 28 H 156/78 H 91 11/14/19 18:50 54 L 22 11/14/19 18:40 74 33 H 90 11/14/19 18:39 76 20 90 11/14/19 18:31 65 36 H 11/14/19 18:30 73 27 H 153/84 H 11/14/19 18:20 63 27 H 93 11/14/19 18:10 64 33 H 91 11/14/19 18:01 69 28 H 91 11/14/19 18:00 58 L 38 H 165/83 H 90 11/14/19 17:50 77 24 91 11/14/19 17:46 73 31 H 11/14/19 17:42 69 37 H 159/91 H 11/14/19 17:17 36.9 C 72 24 197/70 H 92 Laboratory Results Laboratory Results WBC 7.68 K/uL (4.8-10.8) 11/14/19 17:39 RBC 4.34 M/uL (4.7-6.1) L 11/14/19 17:39 Hgb 13.1 g/dL (14.0-18.0) L 11/14/19 17:39 Hct 38.8 % (42-52) L 11/14/19 17:39 MCV 89.4 fL (80-100) 11/14/19 17:39 MCH 30.2 pg (25-34) 11/14/19 17:39 MCHC 33.8 g/dL (32-36) 11/14/19 17:39 RDW Std Deviation 47.8 fL (36.4-46.3) H 11/14/19 17:39 RDW Coeff of Tonya 14.5 % (11.5-14.5) 11/14/19 17:39 Plt Count 226 K/uL (130-400) 11/14/19 17:39 MPV 10.2 fL (7.4-10.4) 11/14/19 17:39 Immature Gran % (Auto) 0.1 % 11/14/19 17:39 Neut % (Auto) 71.3 % 11/14/19 17:39 Lymph % (Auto) 14.3 % 11/14/19 17:39 [place] % (Auto) 12.5 % 11/14/19 17:39 Eos % (Auto) 1.7 % 11/14/19 17:39 Baso % (Auto) 0.1 % 11/14/19 17:39 Immature Gran # (Auto) 0.01 K/uL (0.00-0.02) 11/14/19 17:39 Neut # (Auto) 5.47 K/uL (1.4-6.5) 11/14/19 17:39 Lymph # (Auto) 1.10 K/uL (1.2-3.4) L 11/14/19 17:39 [place] # (Auto) 0.96 K/uL (0.11-0.59) H 11/14/19 17:39 Eos # (Auto) 0.13 K/uL (0-0.5) 11/14/19 17:39 Baso # (Auto) 0.01 K/uL (0-0.2) 11/14/19 17:39 PT 14.2 Seconds (9.0-12.0) H 11/14/19 17:39 INR 1.4 (0.9-1.1) H 11/14/19 17:39 APTT 27.1 Seconds (21.0-31.0) 11/14/19 17:39 PTT Ratio 1.0 11/14/19 17: D-Dimer 380 ug/L FEU (0-500) 11/14/19 17:39 Sodium 135 mmol/L (136-145) L 11/14/19 17:39 Potassium 3.5 mmol/L (3.5-5.1) 11/14/19 17:39 Chloride 100 mmol/L (98-107) 11/14/19 17:39 Carbon Dioxide 29 mmol/L (21-32) 11/14/19 17:39 Anion Gap 6.0 (3-11) 11/14/19 17:39 BUN 15 mg/dl (7-18) 11/14/19 17:39 Creatinine 0.85 mg/dl (0.6-1.4) 11/14/19 17:39 Est Cr Clr Drug Dosing 89.9 ml/min 11/14/19 17:39 Est GFR ( Amer) 93.4 11/14/19 17:39 Est GFR (Non-Af Amer) 80.6 11/14/19 17:39 BUN/Creatinine Ratio 17.9 (10-20) 11/14/19 17:39 Glucose 243 mg/dl (70-99) H 11/14/19 17:39 POC Glucose 205 mg/dl (70-99) H 11/14/19 22:31 Calcium 8.5 mg/dl (8.5-10.1) 11/14/19 17:39 Magnesium 1.9 mg/dl (1.8-2.4) 11/14/19 17:39 Total Bilirubin 0.8 mg/dl (0.2-1) 11/14/19 17:39 AST 19 U/L (15-37) 11/14/19 17:39 ALT 30 U/L (12-78) 11/14/19 17:39 Alkaline Phosphatase 54 U/L (45-117) 11/14/19 17:39 Troponin I < 0.015 ng/ml (0-0.045) 11/14/19 17:39 NT-Pro-B Natriuret Pep 976 pg/ml (0-1800) 11/14/19 17:39 Total Protein 7.0 gm/dl (6.4-8.2) 11/14/19 17:39 Albumin 3.4 gm/dl (3.4-5.0) 11/14/19 17:39 Globulin 3.6 gm/dl (2.5-4.0) 11/14/19 17:39 Albumin/Globulin Ratio 0.9 (0.9-2) 11/14/19 17:39 Urine Color Yellow 11/14/19 18:21 Urine Appearance Clear (Clear) 11/14/19 18:21 Urine pH 5.5 (4.5-7.5) 11/14/19 18:21 Ur Specific [place] 1.015 (1.000-1.030) 11/14/19 18:21 Urine Protein 2+ (Negative) H 11/14/19 18:21 Urine Glucose (UA) 3+ (Negative) H 11/14/19 18:21 Urine Ketones Negative (Negative) 11/14/19 18:21 Urine Blood 1+ (Negative) H 11/14/19 18:21 Urine Nitrite Negative (Negative) 11/14/19 18:21 Urine Bilirubin Negative (Negative) 11/14/19 18:21 Urine Urobilinogen Negative (Negative) 11/14/19 18:21 Ur Leukocyte Esterase Negative (Negative) 11/14/19 18:21 Urine WBC (Auto) 1-5 /hpf (0-5) 11/14/19 18:21 Urine RBC (Auto) 0-4 /hpf (0-4) 11/14/19 18:21 U Hyaline Cast (Auto) 1-5 /lpf (0-5) 11/14/19 18:21 U Epithel Cells (Auto) 5-10 /lpf (0-5) H 11/14/19 18:21 Urine Bacteria (Auto) Negative (Negative) 11/14/19 18:21 Influenza Type A (PCR) Neg for Influ A (Neg) 11/14/19 17:39 Influenza Type B (PCR) Neg for Influ B (Neg) 11/14/19 17:39 Diagnostic Findings Chest x-ray : No active disease in the chest. EKG as per my interpretation : Rate 70, A. fib, RAD, incomplete RBBB, incomplete LBBB, ST depression lateral leads
[2019-11-14] MEDS ORDERED: carvediloL 25 MG TAB PO STA (21:59)
[2019-11-14] MEDS ORDERED: CARBOHYDRATES FOR HYPOGLYCEMIA PO PRN (23:16)
[2019-11-14] MEDS ORDERED: DOXYCYCLINE HYCLATE 100 MG in DEXTROSE 5% 100 ML IV STA (23:16)
[2019-11-14] MEDS ORDERED: TRAMADOL HCL 50 MG TABLET PO PRN (23:16)
[2019-11-14] MEDS ORDERED: GLUCAGON FOR INJ 1 MG VIAL SQ PRN (23:16)
[2019-11-14] MEDS ORDERED: ACETAMINOPHEN 325 MG TAB PO PRN (23:16)
[2019-11-14] MEDS ORDERED: PROMETHAZINE HCL 12.5 MG in SODIUM CHLORIDE 0.9% 50 ML IV PRN (23:16)
[2019-11-14] MEDS ORDERED: GLUCOSE 40% GEL 15 GM TUBE PO PRN (23:16)
[2019-11-14] MEDS ORDERED: NITROGLYCERIN SL 0.4 MG/TAB TAB SL PRN (23:16)
[2019-11-14] MEDS ORDERED: DEXTROSE 50% 50 ML SYRINGE IV PRN (23:16)
[2019-11-14] MEDS ORDERED: GLUCOSE 10 TABS/TUBE PO PRN (23:16)
[2019-11-14] MEDS ORDERED: LACTATED RINGER'S 1,000 ML IV ONE (23:16)
[2019-11-14] MEDS: DOXAZosin MESYLATE TAB 2 MG TAB PO SCH (23:48)
[2019-11-14] MEDS: INSULIN ASPART 100 UNITS/ML 3 ML PEN SC SCH (23:50)
[2019-11-15] MEDS ORDERED: XOPENEX/ATROVENT 1.25mg/0.5MG NEB COMBO NEB SCH (01:00)
[2019-11-15] MEDS: IPRATROPIUM BROMIDE NEB SOLN 0.02% 2.5 ML VIAL INH SCH ×4 (01:33→18:50)
[2019-11-15] MEDS: LEVALBUTEROL 1.25MG/0.5ML NEB INH SCH ×4 (01:33→18:50)
[2019-11-15 06:13] LABS: Basophils # (auto) 0.01 K/uL (0-0.2); Basophils % (auto) 0.2 %; Hematocrit (blood only) 38.2 % (42-52); Hemoglobin 13.2 g/dL (14.0-18.0); Immature Granulocytes # (auto) 0.01 K/uL (0.00-0.02); Immature Granulocytes % (auto) 0.2 %; Lymphocytes # (auto) 0.94 K/uL (1.2-3.4); Lymphocytes % (auto) 15.2 %; Mean Corpuscular Hgb Conc 34.6 g/dL (32-36); Mean Corpuscular Volume 86.8 fL (80-100); Mean Platelet Volume 9.9 fL (7.4-10.4); Monocytes # (auto) 0.19 K/uL (0.11-0.59); Monocytes % (auto) 3.1 %; Neutrophils # (auto) 5.02 K/uL (1.4-6.5); Neutrophils % (auto) 81.3 %; Platelet Count 235 K/uL (130-400); RDW Coefficient of Variation 14.3 % (11.5-14.5); RDW Standard Deviation 45.8 fL (36.4-46.3); White Blood Count 6.17 K/uL (4.8-10.8)
[2019-11-15 06:20] LABS: INR 1.5 (0.9-1.1); Prothrombin Time 14.5 Seconds (9.0-12.0)
[2019-11-15 06:52] LABS: BUN Creatinine Ratio 19.4 (10-20); Calcium 8.6 mg/dl (8.5-10.1); Est GFR (African American) 96.2; Potassium 3.8 mmol/L (3.5-5.1)
[2019-11-15] MEDS: ATORVASTATIN 10 MG TAB PO SCH (08:02)
[2019-11-15] MEDS: ASPIRIN 81 MG ECTAB PO SCH (08:02)
[2019-11-15] MEDS: lisinopriL 40 MG TAB PO SCH (08:02)
[2019-11-15] MEDS: carvediloL 25 MG TAB PO SCH ×2 (08:03→20:43)
[2019-11-15] MEDS: ENOXAPARIN INJ 30 MG/0.3 ML SYR SQ SCH (08:03)
[2019-11-15] MEDS: DOXYCYCLINE HYCLATE 100 MG CAP PO SCH ×2 (08:03→20:43)
[2019-11-15] MEDS: INSULIN ASPART 100 UNITS/ML 3 ML PEN SC SCH ×4 (08:04→20:42)
[2019-11-15] MEDS ORDERED: FUROSEMIDE 80 MG TAB PO SCH (10:15)
--- NOTE | 2019-11-15 11:34 | Hospitalist Progress Note ---
Date of Service November 15, 2019 Assessment & Plan (1) SOB (shortness of breath): Bronchitis Present on admission with cough associated with SOB Failed outpatient management with amoxicillin and tessalon CXR showed no active disease in the chest. Received IV solumedrol, lasix and doxycycline in the ER Continue Doxycycline PO BID Will give prednisone 20mg Continue monitor A. fib Rate controlled with carvedilol Continue coumadin with INR 1.5 today Continue monitor Hypertension BP elevated Resume lasix 40mg BID Continue lisinopril Monitor BP DM 2 Hba1c pending Continue lantus and novolog sliding scale Continue monitor BS Chronic venous insufficiency Continue Lasix 40mg BID Monitor BMP DVT px on coumadin with INR 1.5 Continue Lovenox until INR therapeutic Code Status Full code Admission and Anticipated Discharge Date Admission Date: November 14, 2019 Subjective Pt was seen and examined Lying in bed with no distress Pt said that his cough improves He said that he walks in the hallway with no discomfort Denies any chest pain, palpitation, dizziness and SOB Physical Exam 2 Physical Exam: General- No acute distress Head- atraumatic Eyes- PERRL, EOMI, ENT- oropharynx clear Neck- supple, no JVD Lungs- diminish BS Heart- regular rhythm; no murmur Abdomen- normal bowel sounds, soft, nontender Extremities- no calf tenderness, +edema Neuro- alert, oriented x 3; PERRL, EOMI; no facial palsy; no dysarthria Skin- warm & dry Results & Data ([facility]) Vital Signs (Past 12 Hours) Vital Signs Temp Pulse Pulse Resp BP Pulse Ox 11/15/19 10:20 63 176/86 H 11/15/19 07:46 36.6 C 64 18 181/83 H 91 11/15/19 07:18 83 20 90 11/15/19 02:52 36.8 C 64 19 150/86 H 91 11/15/19 01:57 87 16 90 11/15/19 01:17 73
[2019-11-15] MEDS ORDERED: predniSONE 20 MG TAB PO STA (14:01)
--- NOTE | 2019-11-15 14:14 | Electrocardiogram Report ---
Test Reason : Blood Pressure : / mmHG Vent. Rate : 070 BPM Atrial Rate : 061 BPM P-R Int : 000 ms QRS Dur : 110 ms QT Int : 406 ms P-R-T Axes : 000 100 186 degrees QTc Int : 438 ms Poor data quality, interpretation may be adversely affected Atrial fibrillation Rightward axis Incomplete left bundle block Marked ST abnormality, possible lateral subendocardial injury Abnormal ECG When compared with ECG of 18-JAN-2012 09:04, Atrial fibrillation has replaced Sinus rhythm ST no longer elevated in Inferior leads T wave inversion now evident in Inferior leads Confirmed by Armani East ([id number]) on 11/15/2019 2:14:15 PM Referred By: REFERRED SELF Confirmed By:Armani East
[2019-11-15] MEDS ORDERED: OPTIRAY 320 125ml IV PRN (15:35)
[2019-11-15] MEDS: HydrALAZINE HCL 20 MG/ML VIAL IV PRN (15:42)
[2019-11-15] MEDS: WARFARIN SOD 5 MG TAB PO SCH (15:43)
--- NOTE | 2019-11-15 16:00 | CT Scan Report ---
CT ANGIOGRAM OF THE CHEST CLINICAL HISTORY: Atypical chest pain. COMPARISON STUDY: Chest x-ray dated 11/14/2019. TECHNIQUE: Following the IV administration of 118 cc of Optiray 320, CT angiogram of the chest was pe rformed from the upper abdomen to the thoracic inlet utilizing the pulmonary embolus protocol. Images are reviewed in the axial, sagittal, and coronal planes. 3-D MIPS images are created and assessed. I V contrast was administered without complication. A dose lowering technique was utilized adhering to the principles of ALARA. The examination is significantly compromised by motion artifact. CT DOSE: 744.37 mGy.cm FINDINGS: Thyroid: Imaged portions of the thyroid gland are normal in size and attenuation. Thoracic aorta: There is atherosclerotic calcification of the thoracic aorta, which is normal in marlin kenn and demonstrates bovine variant arch anatomy. No dissection is seen. Pulmonary vasculature: The pulmonary trunk is dilated, measuring 4.3 cm in diameter. This suggests pu lmonary artery hypertension. There are no filling defects identified in main, lobar, or proximal segm ental pulmonary branches to suggest pulmonary embolus. Evaluation of the peripheral vessels is signif icantly degraded by motion artifact. Heart: The heart is enlarged and without pericardial effusion. The coronary arteries are densely calc ified. Lungs and pleural spaces: Evaluation of the lung parenchyma is significantly compromised by motion ar tifact. Foci of patchy groundglass consolidation are present within the dependent lower lobes. No ple ural effusion is seen. Question secretions within the trachea. Mediastinum: There is no mediastinal lymphadenopathy. Angie: Clear. Axillae: There is no axillary lymphadenopathy. Upper abdomen: Cholecystectomy clips are noted. There is a small hiatal hernia. Skeletal structures: The skeletal structures are osteopenic. No lytic or blastic bony lesions are see n. IMPRESSION: 1. Significantly motion compromised examination. 2. There is no evidence of central pulmonary embolus in the main, lobar, or proximal segmental pulmon mayra arteries. 3. There are foci of patchy groundglass consolidation seen dependently within the lower lobes. Correl ate clinically for evidence of pneumonia/aspiration pneumonitis. 4. Cardiomegaly with evidence of pulmonary artery hypertension. 5. Additional findings as above. ACT 112: Negative or not required by law. Electronically signed by: Christopher Anthony M.D. 11/15/2019 3:58 PM
[2019-11-15] MEDS: FUROSEMIDE 40 MG TAB PO SCH (18:52)
[2019-11-15] MEDS: INSULIN GLARGINE SOLOSTAR 100 UNITS/ML 3 ML PEN SQ SCH (20:41)
[2019-11-15] MEDS: DOXAZosin MESYLATE TAB 2 MG TAB PO SCH (20:44)
[2019-11-15] MEDS ORDERED: INSULIN GLARGINE SOLOSTAR 100 UNITS/ML 3 ML PEN SQ SCH (21:00)
[2019-11-16] MEDS: IPRATROPIUM BROMIDE NEB SOLN 0.02% 2.5 ML VIAL INH SCH ×4 (01:38→19:27)
[2019-11-16] MEDS: LEVALBUTEROL 1.25MG/0.5ML NEB INH SCH ×4 (01:38→19:27)
[2019-11-16] MEDS: HydrALAZINE HCL 20 MG/ML VIAL IV PRN (04:33)
[2019-11-16 05:47] LABS: Estimated Average Glucose 169 mg/dl; Hemoglobin A1C 7.5 % (4.5-5.6)
[2019-11-16 06:44] LABS: INR 1.5 (0.9-1.1); Prothrombin Time 15.1 Seconds (9.0-12.0)
[2019-11-16] MEDS: DOXYCYCLINE HYCLATE 100 MG CAP PO SCH ×2 (07:49→21:16)
[2019-11-16] MEDS: ATORVASTATIN 10 MG TAB PO SCH (07:49)
[2019-11-16] MEDS: ASPIRIN 81 MG ECTAB PO SCH (07:49)
[2019-11-16] MEDS: carvediloL 25 MG TAB PO SCH ×2 (07:50→21:13)
[2019-11-16] MEDS: ENOXAPARIN INJ 30 MG/0.3 ML SYR SQ SCH (07:50)
[2019-11-16] MEDS: FUROSEMIDE 40 MG TAB PO SCH ×2 (07:50→16:14)
[2019-11-16] MEDS ORDERED: FUROSEMIDE 40 MG TAB PO SCH (09:00)
[2019-11-16] MEDS: lisinopriL 40 MG TAB PO SCH (09:10)
[2019-11-16] MEDS: INSULIN GLARGINE SOLOSTAR 100 UNITS/ML 3 ML PEN SQ SCH ×2 (09:11→21:19)
[2019-11-16] MEDS: INSULIN ASPART 100 UNITS/ML 3 ML PEN SC SCH ×4 (09:12→21:17)
[2019-11-16] MEDS ORDERED: FUROSEMIDE 20 MG in SYRINGE 0 ML IV ONE (10:13)
[2019-11-16] MEDS ORDERED: predniSONE 20 MG TAB PO STA (12:03)
[2019-11-16] MEDS: WARFARIN SOD 5 MG TAB PO SCH (16:14)
--- NOTE | 2019-11-16 19:51 | Hospitalist Progress Note ---
Date of Service November 16, 2019 Assessment & Plan (1) SOB (shortness of breath): Bronchitis Present on admission with cough associated with SOB Failed outpatient management with amoxicillin and tessalon CXR showed no active disease in the chest. Received IV solumedrol, lasix and doxycycline in the ER Continue Doxycycline PO BID prednisone 20mg give today with additional lasix 20mg IV Continue monitor A. fib Rate controlled with carvedilol Continue coumadin with INR 1.5 today Continue monitor Hypertension BP elevated Resume lasix 40mg BID Continue lisinopril Monitor BP DM 2 Hba1c pending Continue lantus and novolog sliding scale Continue monitor BS Chronic venous insufficiency Continue Lasix 40mg BID Monitor BMP DVT px on coumadin with INR 1.5 Continue Lovenox until INR therapeutic Code Status Full code Admission and Anticipated Discharge Date Admission Date: November 14, 2019 Subjective Pt was seen and examined Sitting in chair with no distress Saturated well on RA Denies any chest pain, palpitation and SOB Physical Exam Physical Exam: General- No acute distress Head- atraumatic Eyes- PERRL, EOMI, ENT- oropharynx clear Neck- supple, no JVD Lungs- diminish BS Heart- regular rhythm; no murmur Abdomen- normal bowel sounds, soft, nontender Extremities- no calf tenderness, +edema Neuro- alert, oriented x 3; PERRL, EOMI; no facial palsy; no dysarthria Skin- warm & dry Results & Data ([facility]) Vital Signs (Past 12 Hours) Vital Signs Temp Pulse Pulse Resp BP Pulse Ox 11/16/19 19:27 75 16 95 11/16/19 19:04 36.5 C 72 18 151/88 H 92 11/16/19 16:19 70 11/16/19 15:32 36.6 C 52 L 18 157/61 H 92 11/16/19 13:09 75 16 93 11/16/19 11:59 36.4 C L 66 16 116/66 92 11/16/19 09:40 121/70
[2019-11-16] MEDS: DOXAZosin MESYLATE TAB 2 MG TAB PO SCH (21:14)
[2019-11-17] MEDS: IPRATROPIUM BROMIDE NEB SOLN 0.02% 2.5 ML VIAL INH SCH ×4 (01:15→19:33)
[2019-11-17] MEDS: LEVALBUTEROL 1.25MG/0.5ML NEB INH SCH ×4 (01:16→19:33)
[2019-11-17] MEDS ORDERED: MAGNESIUM SULFATE / D5W 1 GM/100 ML BAG IV ONE (03:45)
[2019-11-17] MEDS ORDERED: POTASSIUM CHLORIDE 20 MEQ TABCR PO STA ×2 (03:45→05:39)
--- NOTE | 2019-11-17 03:48 | Communication Note ---
Date of Service: November 17, 2019 Made aware by RN all episodic bradycardia cardiac rate 30 to 40s with 3.5-second pause noted. SBP 1 50-1 70s Patient sleeping during episodes. AP Episodic bradycardia, asymptomatic ? Secondary to home BB dose Uncontrolled hypertension Decrease home Coreg dose Initiate Norvasc for additional blood pressure control. Will relay to AM provider.
[2019-11-17] MEDS ORDERED: AMLODIPINE BESYLATE 5 MG TAB PO SCH (03:50)
[2019-11-17 04:24] LABS: Basophils # (auto) 0.03 K/uL (0-0.2); Basophils % (auto) 0.4 %; Eosinophils # (auto) 0.03 K/uL (0-0.5); Eosinophils % (auto) 0.4 %; Hematocrit (blood only) 38.1 % (42-52); Hemoglobin 13.2 g/dL (14.0-18.0); Immature Granulocytes # (auto) 0.02 K/uL (0.00-0.02); Immature Granulocytes % (auto) 0.2 %; Lymphocytes # (auto) 2.56 K/uL (1.2-3.4); Lymphocytes % (auto) 31.1 %; Mean Corpuscular Hemoglobin 30.2 pg (25-34); Mean Corpuscular Hgb Conc 34.6 g/dL (32-36); Mean Corpuscular Volume 87.2 fL (80-100); Mean Platelet Volume 9.8 fL (7.4-10.4); Monocytes # (auto) 0.63 K/uL (0.11-0.59); Monocytes % (auto) 7.6 %; Neutrophils # (auto) 4.97 K/uL (1.4-6.5); Neutrophils % (auto) 60.3 %; Platelet Count 295 K/uL (130-400); RDW Coefficient of Variation 14.2 % (11.5-14.5); RDW Standard Deviation 45.6 fL (36.4-46.3); Red Blood Count 4.37 M/uL (4.7-6.1); White Blood Count 8.24 K/uL (4.8-10.8)
[2019-11-17 04:37] LABS: INR 1.4 (0.9-1.1); Prothrombin Time 14.3 Seconds (9.0-12.0)
[2019-11-17 04:41] LABS: BUN Creatinine Ratio 23.9 (10-20); Calcium 8.8 mg/dl (8.5-10.1); Creatinine Clr Calc Pharmacy 81.2 ml/min; Est GFR (African American) 88.8; Est GFR (Non-African American) 76.6; Magnesium 2.3 mg/dl (1.8-2.4); Potassium 3.3 mmol/L (3.5-5.1)
[2019-11-17 04:52] LABS: Thyroid Stimulating Hormone 2.27 uIu/ml (0.300-4.500)
[2019-11-17] MEDS: DOXYCYCLINE HYCLATE 100 MG CAP PO SCH ×2 (07:42→22:11)
[2019-11-17] MEDS: ASPIRIN 81 MG ECTAB PO SCH (07:42)
[2019-11-17] MEDS: ENOXAPARIN INJ 30 MG/0.3 ML SYR SQ SCH (07:42)
[2019-11-17] MEDS: FUROSEMIDE 40 MG TAB PO SCH ×2 (07:42→17:17)
[2019-11-17] MEDS: ATORVASTATIN 10 MG TAB PO SCH (07:42)
[2019-11-17] MEDS: lisinopriL 40 MG TAB PO SCH (07:42)
[2019-11-17] MEDS: INSULIN GLARGINE SOLOSTAR 100 UNITS/ML 3 ML PEN SQ SCH ×2 (08:20→22:14)
[2019-11-17] MEDS: INSULIN ASPART 100 UNITS/ML 3 ML PEN SC SCH ×4 (08:21→22:16)
--- NOTE | 2019-11-17 08:43 | Cardiology Consultation ---
Date of Consultation November 17, 2019 Assessment & Plan (1) Atrial fibrillation with controlled ventricular rate: Patient with long history of controlled atrial fibrillation. One pause overnight of 3.5 seconds. no symptoms to suggest significant bradyarrhythmias at home. HR's in the 60's Reduce carvedilol to 12.5 mg BID for now. Continue Coumadin. (2) Hypertension: Long history of difficult to control hypertension. with reduction in carvedilol, likely will need additional antihypertensive therapy. Given his issues with LE edema/venous insufficiency, amlodipine likely not best choice for BP. Will discontinue amlodipine. Start low dose spironolactone 12.5 mg daily given hyperkalemia. Continue lisinopril, doxazosin, furosemide, carvedilol. (3) Edema: Increased edema overnight. continue furosemide and add spironolactone Monitor BMP and potassium levels. Case discussed with Dr. David Supervising Physician Co-Signing Physician Notes Patient seen and examined, chart, telemetry reviewed. Full assessment and plan as above. Patient with transient pause of 3.5 seconds last evening superimposed on chronic atrial fibrillation. Patient asymptomatic with no signs or symptoms of bradycardia arrhythmias historically. Agree with reduction in carvedilol dosing. Alternative therapies ordered for blood pressure History of Present Illness Reason for Consultation: Afib; slow ventricular rates Requesting Physician: Dr. Lewis Attending Physician: Dr. 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 History of difficult to control hypertension, chronic afib on chronic Coumadin, aortic sclerosis without stenosis, mixed dyslipidemia, DM type II and chronic LE edema due to venous insufficiency. He was admitted for worsening SOB, with diagnosis of bronchitis treated with antibiotics. He feels his breathing/SOB, cough and wheeze are slowly improving. last night patient was sleeping and had a 3.5 second pause on telemetry. Cardiology was consulted to address this pause and his cardiac medications. he has been on carvedilol 25 mg BID for years without issues for BP and HR control. Carvedilol was reduced by hospitalist overnight. Amlodipine was added. At time of consult, patient's BP remains elevated. HR's currently in the 80's after reduction in carvedilol. Chronic afib. He denies recent or recurrent dizziness,s lightheadedness, syncope or near syncope. No sense of palpitations or tachypalpitations. he reports his LE edema has improved since prior titration of diuretics as outpatient with Dr. Burgos several months ago. He admits to intermittent non compliance with diuretics as well. . he has increased LE edema currently. he feels this is due to him "sitting" in his chair for several days. receiving home dose diuretics currently. No chest pain. No orthopnea, PND. No fever or chills. Ongoing cough and wheeze noted. Allergies Allergy/AdvReac Type Severity Reaction Status Date / Time No Known Allergies Allergy Unverified 11/14/19 18:05 Home Medications Home Medications Medication Instructions Recorded Confirmed Type aspirin 81 mg PO QAM 10/06/19 11/14/19 History atorvastatin 10 mg PO QAM 10/06/19 11/14/19 History carvedilol 25 mg PO QAM 10/06/19 11/14/19 History doxazosin 16 mg PO HS 10/06/19 11/14/19 History furosemide 40 mg PO BID 10/06/19 11/15/19 History glipizide 5 mg PO BID 10/06/19 11/14/19 History lisinopril 40 mg PO QAM 10/06/19 11/14/19 History metformin 500 mg PO BID 10/06/19 11/14/19 History warfarin [Coumadin] 5 mg PO QPM 10/06/19 11/14/19 History Patient History Medical History Atrial fibrillation DX 2011 - FOLLOWS W/ DR. BURGOS - ON WARFARIN Diabetes mellitus, type 2 NIDDM History of colon polyps HTN (hypertension) Hyperlipemia Poor historian Surgical History History of cardiac cath 2-3 YEARS AGO - NO STENTS History of cataract surgery History of cholecystectomy History of colonoscopy Family History Other No family history of adverse response to anesthesia Social History Preferred Language: Maltese Communication Ability: Effective Sales And Training Specialist Required: No Beliefs That Will Affect Care: None Current Living Situation: Spouse Other Information That Helps Us Care for You: No Feels Safe at Home: Yes Safety Concerns: Feels Safe At This Time Smoking Status: Never smoker Hx Alcohol Use: No Hx Substance Use: No Review of Systems Review of Systems: All systems reviewed & are unremarkable except as noted in HPI & below Physical Exam Constitutional: WD/WN, vitals as above + obese; no acute distress Respiratory: Auscultation: + diminished lung sounds, + rhonchi and + wheezes; no rales Cardiovascular: Rate/Rhythm: + irregularly irregular Heart Sounds: + murmur (II/ systolic murmur LSB) Vessels: no JVD Extremities: + edema (2+ a nkle and pretibial edema b/l ) Gastrointestinal (Abdomen): normal bowel sounds, soft, nontender, no hepatosplenomegaly Neurologic: PERRL, EOMI, accommodation nl, no face palsy, no dysarthria Psychiatric: A+Ox3, euthymic affect Results & Data ([facility]) Vital Signs (Past 12 Hours) Vital Signs Temp Pulse Pulse Resp BP BP Pulse Ox 11/17/19 07:25 36.5 C 77 20 180/89 H 11/17/19 06:55 56 L 17 94 11/17/19 05:21 36.7 C 70 20 178/80 H 91 11/17/19 03:20 83 11/17/19 00:48 36.7 C 67 19 174/89 H 91 Laboratory Results 11/17/19 11/17/19 11/17/19 Range/Units 11:49 07:46 04:13 WBC (4.8-10.8) K/uL RBC (4.7-6.1) M/uL Hgb (14.0-18.0) g/dL Hct (42-52) % MCV (80-100) fL MCH (25-34) pg MCHC (32-36) g/dL RDW Std Deviation (36.4-46.3) fL RDW Coeff of Tonya (11.5-14.5) % Plt Count (130-400) K/uL MPV (7.4-10.4) fL Immature Gran % (Auto) % Neut % (Auto) % Lymph % (Auto) % [place] % (Auto) % Eos % (Auto) % Baso % (Auto) % Immature Gran # (Auto) (0.00-0.02) K/uL Neut # (Auto) (1.4-6.5) K/uL Lymph # (Auto) (1.2-3.4) K/uL [place] # (Auto) (0.11-0.59) K/uL Eos # (Auto) (0-0.5) K/uL Baso # (Auto) (0-0.2) K/uL PT 14.3 H (9.0-12.0) Seconds INR 1.4 H (0.9-1.1) Sodium (136-145) mmol/L Potassium (3.5-5.1) mmol/L Chloride (98-107) mmol/L Carbon Dioxide (21-32) mmol/L Anion Gap (3-11) BUN (7-18) mg/dl Creatinine (0.6-1.4) mg/dl Est Cr Clr Drug Dosing ml/min Est GFR ( Amer) Est GFR (Non-Af Amer) BUN/Creatinine Ratio (10-20) Glucose (70-99) mg/dl POC Glucose 174 H 137 H (70-99) mg/dl Calcium (8.5-10.1) mg/dl Magnesium (1.8-2.4) mg/dl TSH (0.300-4.500) uIu/ml 11/17/19 11/17/19 11/16/19 Range/Units 04:13 04:13 20:24 WBC 8.24 (4.8-10.8) K/uL RBC 4.37 L (4.7-6.1) M/uL Hgb 13.2 L (14.0-18.0) g/dL Hct 38.1 L (42-52) % MCV 87.2 (80-100) fL MCH 30.2 (25-34) pg MCHC 34.6 (32-36) g/dL RDW Std Deviation 45.6 (36.4-46.3) fL RDW Coeff of Tonya 14.2 (11.5-14.5) % Plt Count 295 (130-400) K/uL MPV 9.8 (7.4-10.4) fL Immature Gran % (Auto) 0.2 % Neut % (Auto) 60.3 % Lymph % (Auto) 31.1 % [place] % (Auto) 7.6 % Eos % (Auto) 0.4 % Baso % (Auto) 0.4 % Immature Gran # (Auto) 0.02 (0.00-0.02) K/uL Neut # (Auto) 4.97 (1.4-6.5) K/uL Lymph # (Auto) 2.56 (1.2-3.4) K/uL [place] # (Auto) 0.63 H (0.11-0.59) K/uL Eos # (Auto) 0.03 (0-0.5) K/uL Baso # (Auto) 0.03 (0-0.2) K/uL PT (9.0-12.0) Seconds INR (0.9-1.1) Sodium 137 (136-145) mmol/L Potassium 3.3 L (3.5-5.1) mmol/L Chloride 102 (98-107) mmol/L Carbon Dioxide 29 (21-32) mmol/L Anion Gap 6.0 (3-11) BUN 22 H (7-18) mg/dl Creatinine 0.92 (0.6-1.4) mg/dl Est Cr Clr Drug Dosing 81.2 ml/min Est GFR ( Amer) 88.8 Est GFR (Non-Af Amer) 76.6 BUN/Creatinine Ratio 23.9 H (10-20) Glucose 142 H (70-99) mg/dl POC Glucose 270 H (70-99) mg/dl Calcium 8.8 (8.5-10.1) mg/dl Magnesium 2.3 (1.8-2.4) mg/dl TSH 2.270 (0.300-4.500) uIu/ml 11/16/19 Range/Units 16:07 WBC (4.8-10.8) K/uL RBC (4.7-6.1) M/uL Hgb (14.0-18.0) g/dL Hct (42-52) % MCV (80-100) fL MCH (25-34) pg MCHC (32-36) g/dL RDW Std Deviation (36.4-46.3) fL RDW Coeff of Tonya (11.5-14.5) % Plt Count (130-400) K/uL MPV (7.4-10.4) fL Immature Gran % (Auto) % Neut % (Auto) % Lymph % (Auto) % [place] % (Auto) % Eos % (Auto) % Baso % (Auto) % Immature Gran # (Auto) (0.00-0.02) K/uL Neut # (Auto) (1.4-6.5) K/uL Lymph # (Auto) (1.2-3.4) K/uL [place] # (Auto) (0.11-0.59) K/uL Eos # (Auto) (0-0.5) K/uL Baso # (Auto) (0-0.2) K/uL PT (9.0-12.0) Seconds INR (0.9-1.1) Sodium (136-145) mmol/L Potassium (3.5-5.1) mmol/L Chloride (98-107) mmol/L Carbon Dioxide (21-32) mmol/L Anion Gap (3-11) BUN (7-18) mg/dl Creatinine (0.6-1.4) mg/dl Est Cr Clr Drug Dosing ml/min Est GFR ( Amer) Est GFR (Non-Af Amer) BUN/Creatinine Ratio (10-20) Glucose (70-99) mg/dl POC Glucose 222 H (70-99) mg/dl Calcium (8.5-10.1) mg/dl Magnesium (1.8-2.4) mg/dl TSH (0.300-4.500) uIu/ml Diagnostic Findings EKG on admission - significant artifact Telemetry reviewed - Afib with controlled rates, overnight HR's trending lower to 40's. one 3.5 second pause. No symptoms reported. No pauses during daytime hours. Outpatient echo report reviewed, dated 07/2019; Interpretation Summary The examination is adequate to evaluate the referral indication. Atrial fibrillation controlled ventricular response was present during the echocardiogram study. The LV wall thickness is mildly increased (concentric). The left ventricular wall motion is normal. The left atrium is mildly enlarged (35-41 ml/m^2). Moderate aortic valve sclerosis is present. Aortic stenosis is absent. Significant mitral regurgitation is absent. Medications Administered Current Inpatient Medications Acetaminophen (Tylenol) 650 mg PO Q4H PRN PRN Reason: Pain or Fever Stop: 12/14/19 23:15 Aspirin (Ecotrin Ectab) 81 mg PO QAM COUNT INCLUDES THE [facility] Stop: 12/15/19 08:59 Last Admin: 02/18/20 07:42 Dose: 81 mg Documented by: Atorvastatin Calcium (Lipitor) 10 mg PO QAM COUNT INCLUDES THE [facility] Stop: 12/15/19 08:59 Last Admin: 11/17/19 07:42 Dose: 10 mg Documented by: Carvedilol (Coreg) 12.5 mg PO BID COUNT INCLUDES THE [facility] Stop: 12/17/19 20:59 Dextrose (Dextrose 50%) 25 - 50 ml IV UD PRN; Protocol PRN Reason: Hypoglycemia Protocol Stop: 12/14/19 23:15 Doxazosin Mesylate (Cardura) 16 mg PO HS COUNT INCLUDES THE [facility] Stop: 12/14/19 23:15 Last Admin: 11/16/19 21:14 Dose: 16 mg Documented by: Doxycycline Hyclate (Vibramycin) 100 mg PO BID COUNT INCLUDES THE [facility] Stop: 11/22/19 08:59 Last Admin: 11/17/19 07:42 Dose: 100 mg Documented by: Enoxaparin Sodium (Lovenox) 30 mg SQ QAM COUNT INCLUDES THE [facility] Stop: 12/15/19 08:59 Last Admin: 11/17/19 07:42 Dose: 30 mg Documented by: Furosemide (Lasix) 40 mg PO BID17 COUNT INCLUDES THE [facility] Stop: 12/15/19 18:59 Last Admin: 11/17/19 07:42 Dose: 40 mg Documented by: Glucagon (Glucagen) 1 mg SQ UD PRN; Protocol PRN Reason: Hypoglycemia Protocol Stop: 12/14/19 23:15 Glucose (Dex4 Glucose) 4 - 8 tabs PO UD PRN; Protocol PRN Reason: Hypoglycemia Protocol Stop: 12/14/19 23:15 Glucose (Glucose 40%) 15 - 30 gm PO UD PRN; Protocol PRN Reason: Hypoglycemia Protocol Stop: 12/14/19 23:15 Hydralazine HCl (Hydralazine Hcl) 10 mg IV Q6H PRN PRN Reason: for SBP above 170 Stop: 12/15/19 15:29 Last Admin: 11/16/19 04:33 Dose: 10 mg Documented by: Promethazine HCl 12.5 mg/ (Sodium Chloride) 50.5 mls @ 202 mls/hr IV Q6H PRN PRN Reason: Nausea And Vomiting Stop: 12/14/19 23:15 Insulin Aspart (Novolog Flexpen) 0 units SC ACHS COUNT INCLUDES THE [facility] Stop: 12/14/19 23:15 Last Admin: 11/17/19 08:21 Dose: 2 units Documented by: Insulin Glargine (Lantus Solostar Pen) 20 units SQ BID COUNT INCLUDES THE [facility] Stop: 12/17/19 08:59 Last Admin: 11/17/19 08:20 Dose: 20 units Documented by: Ioversol (Optiray 320 125ml) 118 ml IV ONCE PRN PRN Reason: Interaction Checking Stop: 11/19/19 15:34 Last Admin: 11/15/19 15:36 Dose: 1 ml Documented by: Ipratropium [place] (Atrovent 0.02% 0.5mg/2.5ml) 0.5 mg INH Q6R COUNT INCLUDES THE [facility] Stop: 12/15/19 00:59 Last Admin: 11/17/19 06:55 Dose: 0.5 mg Documented by: Levalbuterol HCl (Xopenex 1.25mg/0.5ml Neb) 1.25 mg INH Q6R COUNT INCLUDES THE [facility] Stop: 12/15/19 00:59 Last Admin: 11/17/19 06:55 Dose: 1.25 mg Documented by: Lisinopril (Zestril) 40 mg PO QAM COUNT INCLUDES THE [facility] Stop: 12/15/19 08:59 Last Admin: 11/17/19 07:42 Dose: 40 mg Documented by: Miscellaneous (Carbohydrates For Hypoglycemia) 15 - 30 gm PO UD PRN PRN Reason: Hypoglycemia Protocol Stop: 12/14/19 23:15 Nitroglycerin (Nitrostat) 0.4 mg SL UD PRN PRN Reason: Chest Pain Stop: 12/14/19 23:15 Spironolactone (Aldactone) 12.5 mg PO DAILY COUNT INCLUDES THE [facility] Stop: 12/17/19 09:29 Last Admin: 11/17/19 10:04 Dose: 12.5 mg Documented by: Tramadol HCl (Ultram) 25 mg PO Q4H PRN PRN Reason: Pain Stop: 12/14/19 23:15 Warfarin Sodium (Coumadin) 7.5 mg PO DAILY@1600 COUNT INCLUDES THE [facility] Stop: 12/17/19 15:59
[2019-11-17] MEDS ORDERED: carvediloL 3.125 MG TAB PO SCH (09:00)
[2019-11-17] MEDS ORDERED: carvediloL 6.25 MG TAB PO SCH (09:00)
[2019-11-17] MEDS ORDERED: carvediloL 6.25 MG TAB PO STA (09:24)
[2019-11-17] MEDS: SPIRONOLACTONE 25 MG TAB PO SCH (10:04)
[2019-11-17] MEDS ORDERED: WARFARIN SOD 7.5 MG TAB PO SCH (16:00)
--- NOTE | 2019-11-17 18:47 | Hospitalist Progress Note ---
Date of Service November 17, 2019 Assessment & Plan (1) SOB (shortness of breath): Bronchitis Present on admission with cough associated with SOB Failed outpatient management with amoxicillin and tessalon CXR showed no active disease in the chest. Received IV solumedrol, lasix and doxycycline in the ER Continue Doxycycline PO BID Continue monitor A. fib He has been running regan lately Carvedilol decreased Continue coumadin with INR 1.4 today Coumadin increased to 7.5mg daily Continue monitor PT/INR Bradycardia One pause overnight of 3.5 seconds Asymptomatic Carvedilol decrease to 12.5 mg BID Cardiology on board We might need to decrease the Carvedilol to 6.25mg if HR continues to drop in the 30-40's Continue monitor in tele Hypertension BP elevated Resume lasix 40mg BID Continue lisinopril Spironolactone 12.5 mg added Due to LE edema, amlodine is not a good option for him Monitor BP DM 2 Most recent Hba1c 7.5 (11/19) Continue lantus and novolog sliding scale Continue monitor BS Chronic venous insufficiency Continue Lasix 40mg BID Monitor BMP DVT px on coumadin with INR 1.4 Continue Lovenox until INR therapeutic Code Status Full code Admission and Anticipated Discharge Date Admission Date: November 16, 2019 Subjective Pt was seen and examined Lying in bed with no distress Pt said that he feels fine said that the prednisone seems to make him aggressive last night He continues to be bradycardia on telemonitor He denies any symptoms Physical Exam Physical Exam: General- No acute distress Head- atraumatic Eyes- PERRL, EOMI, ENT- oropharynx clear Neck- supple, no JVD Lungs- diminish BS Heart- +bradycardia; no murmur Abdomen- normal bowel sounds, soft, nontender Extremities- no calf tenderness, +edema Neuro- alert, oriented x 3; PERRL, EOMI; no facial palsy; no dysarthria Skin- warm & dry Results & Data ([facility]) Vital Signs (Past 12 Hours) Vital Signs Temp Pulse Resp BP Pulse Ox 11/17/19 16:32 138/74 11/17/19 15:35 36.4 C L 58 L 18 171/76 H 92 11/17/19 13:31 67 16 93 11/17/19 11:33 36.5 C 57 L 18 132/66 91 11/17/19 07:25 36.5 C 77 20 180/89 H 11/17/19 06:55 56 L 17 94
[2019-11-17] MEDS ORDERED: carvediloL 12.5 MG TAB PO SCH (21:00)
[2019-11-17] MEDS: DOXAZosin MESYLATE TAB 2 MG TAB PO SCH (22:10)
[2019-11-17] MEDS ORDERED: OLANZapine 10 MG/2.1 ML SDV IM PRN (22:38)
[2019-11-17 23:22] LABS: BUN Creatinine Ratio 19.1 (10-20); Calcium 8.6 mg/dl (8.5-10.1); Est GFR (African American) 68.5; Est GFR (Non-African American) 59.1; Magnesium 2.3 mg/dl (1.8-2.4); Potassium 3.9 mmol/L (3.5-5.1)
[2019-11-18] MEDS: IPRATROPIUM BROMIDE NEB SOLN 0.02% 2.5 ML VIAL INH SCH ×3 (01:12→13:26)
[2019-11-18] MEDS: LEVALBUTEROL 1.25MG/0.5ML NEB INH SCH ×3 (01:12→13:25)
[2019-11-18] MEDS ORDERED: HydrALAZINE HCL 20 MG/ML VIAL IV STA (01:18)
--- NOTE | 2019-11-18 03:35 | Communication Note ---
Date of Service: November 18, 2019 Patient noted to be agitated overnight as per RN. CR 30s to 40s noted around 2:15 AM as per RN. Patient currently sleeping as per RN. AP Delirium recurrent bradycardia, original home Coreg dose of 25 mg BID decreased by cardiology to 12.5 mg BID yesterday. Check UA Decrease current Coreg 12.5 mg BID dose to 6.25 mg BID Will relay to AM provider.
[2019-11-18] MEDS: lisinopriL 40 MG TAB PO SCH (07:58)
[2019-11-18] MEDS: ATORVASTATIN 10 MG TAB PO SCH (07:59)
[2019-11-18] MEDS: DOXYCYCLINE HYCLATE 100 MG CAP PO SCH (07:59)
[2019-11-18] MEDS: SPIRONOLACTONE 25 MG TAB PO SCH (07:59)
[2019-11-18] MEDS: ASPIRIN 81 MG ECTAB PO SCH (07:59)
[2019-11-18] MEDS: FUROSEMIDE 40 MG TAB PO SCH (08:00)
[2019-11-18] MEDS: ENOXAPARIN INJ 30 MG/0.3 ML SYR SQ SCH (08:00)
[2019-11-18] MEDS: INSULIN ASPART 100 UNITS/ML 3 ML PEN SC SCH ×2 (08:11→13:22)
[2019-11-18] MEDS: INSULIN GLARGINE SOLOSTAR 100 UNITS/ML 3 ML PEN SQ SCH (08:12)
[2019-11-18] MEDS ORDERED: carvediloL 6.25 MG TAB PO SCH (09:00)
--- NOTE | 2019-11-18 10:17 | Cardiology Progress Note ---
Date of Service November 18, 2019 Assessment & Plan (1) Atrial fibrillation with controlled ventricular rate: Patient with long history of controlled atrial fibrillation. Transient bradycardia overnight with longest R to R interval 2.5 seconds, asymptomatic Agree with reduction in carvedilol dosing. Home medication dosing to be confirmed outpatient records reflect 25 mg twice per day. Would recommend reducing carvedilol to 12.5 mg a.m. 6.25 mg p.m. Continue to treat underlying pulmonary issues Spironolactone added to regimen as below would continue (2) Hypertension: Long history of difficult to control hypertension. with reduction in carvedilol, likely will need additional antihypertensive therapy. Given his issues with LE edema/venous insufficiency, amlodipine likely not best choice for BP. Will discontinue amlodipine. Start low dose spironolactone 12.5 mg daily given hyperkalemia. Continue lisinopril, doxazosin, furosemide, carvedilol. (3) Edema: Increased edema overnight. continue furosemide and add spironolactone Monitor BMP and potassium levels. Subjective Heart rates dipped in the evening Patient seen and examined, chart, medications, telemetry reviewed. Pulmonary status improving per patient less cough still wheezy with forced cough by description. No dizziness or lightheadedness no syncope or near syncope Telemetry reviewed transient bradycardia overnight longest R to R interval 2.5 seconds. No profound bradycardia arrhythmias but heart rate slower in the night. Mild agitation overnight observed Physical Exam Constitutional: Age-appropriate male in no acute distress Eyes: PERRL, conjunctivae normal, anicteric sclerae ENMT: external ear and nose normal, oropharynx normal Neck: trachea midline, no thyromegaly Respiratory: Mildly diminished breath sounds with wheezes on forced cough at right base Cardiovascular: Rate/Rhythm: + irregularly irregular Heart Sounds: normal S1 and normal S2; no gallop and no murmur Palpation: normal PMI Vessels: normal carotid upstroke and radial pulses present; no JVD and no carotid bruit Extremities: + edema (1-2+) Gastrointestinal (Abdomen): normal bowel sounds, soft, nontender, no hepatosplenomegaly Musculoskeletal: no cyanosis or clubbing, extremities motor strength 5/5 Skin: no rashes, warm and dry Neurologic: PERRL, EOMI, accommodation nl, no face palsy, no dysarthria Psychiatric: A+Ox3, euthymic affect Results & Data Vital Signs (Past 12 Hours) Vital Signs Temp Pulse Pulse Resp BP Pulse Ox 11/18/19 08:01 61 11/18/19 07:40 36.3 C L 58 L 20 141/74 H 96 11/18/19 07:15 76 18 94 11/18/19 03:18 36.7 C 57 L 18 123/65 92 11/18/19 02:23 40 L 11/18/19 01:28 159/74 H 11/18/19 01:14 63 16 95 11/17/19 23:00 76 11/17/19 22:50 36.3 C L 73 20 219/94 H 96 Laboratory Results Laboratory Results - last 24 hr 11/17/19 11/17/19 11/17/19 11:49 16:19 20:12 Sodium Potassium Chloride Carbon Dioxide Anion Gap BUN Creatinine Est Cr Clr Drug Dosing Est GFR ( Amer) Est GFR (Non-Af Amer) BUN/Creatinine Ratio Glucose POC Glucose 174 H 189 H 200 H Calcium Magnesium 11/17/19 11/18/19 22:43 08:05 Sodium 139 Potassium 3.9 D Chloride 103 Carbon Dioxide 31 Anion Gap 5.0 BUN 22 H Creatinine 1.14 Est Cr Clr Drug Dosing 66.0 Est GFR ( Amer) 68.5 Est GFR (Non-Af Amer) 59.1 BUN/Creatinine Ratio 19.1 Glucose 180 H POC Glucose 137 H Calcium 8.6 Magnesium 2.3
[2019-11-18 11:15] LABS: Appearance Urine Clear (Clear); Bacteria Urine Automated Negative (Negative); Bilirubin Urine Negative (Negative); Blood Urine Negative (Negative); Color Urine Yellow; Glucose Urine UA Trace (Negative); Ketones Urine Negative (Negative); Leukocyte Esterase Urine Negative (Negative); Nitrite Urine Negative (Negative); Protein Urine Trace (Negative); RBC Urine Automated 0-4 /hpf (0-4); Specific Gravity Urine 1.017 (1.000-1.030); Urobilinogen Urine Negative (Negative); pH Urine 5.5 (4.5-7.5)
--- NOTE | 2019-11-18 12:47 | Hospitalist Progress Note ---
Date of Service November 18, 2019 Assessment & Plan (1) SOB (shortness of breath): Possible Pneumonia Bronchitis Present on admission with cough associated with SOB Failed outpatient management with amoxicillin and tessalon CTA chest showed no PE, but there are foci of patchy ground glass consolidation seen dependently within the lower lobes Received IV solumedrol, lasix and doxycycline in the ER Continue Doxycycline PO BID Saturated well on RA Clinically improves significantly A. fib He brief episode of regan cardiology on board recommended to decrease Carvedilol to 12.5 mg in AM and 6.25mg in PM Continue coumadin with INR 1.4 Received Coumadin 7.5mg yesterday Will instruct pt to take 7.5 mg today Check PT/INR on /Saturday Follow up with the [facility]ag clinic Bradycardia brief episode of bradycardia Asymptomatic cardiology on board recommended to decrease Carvedilol to 12.5 mg in AM and 6.25mg in PM Case disccussed with cardiology Ok from cardiology standpoint to discharge home Follow up with your cardiology Hypertension BP fluctuated Spironolactone 12.5 mg added yesterday Continue lisinopril, doxazosin, furosemide, carvedilol. Due to LE edema, amlodipine is not a good option for him Continue monitor outpatient BMP Check BMP in 3-5 days to monitor electrolytes and renal function DM 2 Most recent Hba1c 7.5 (11/19) Continue lantus and novolog sliding scale Continue monitor BS EDEMA Continue Lasix 40mg BID and Spironolactone 12.5 mg daily Monitor BMP DVT px on coumadin with INR 1.4 On Lovenox subq as well Code Status Full code Disposition Discharge home today Follow up with your primary care provider within 1 week Follow up with the coumadin clinic to monitor your PT/INR (Check PT/INR or Saturday) Check BMP in 3-5 days to monitor electrolytes and kidney function Monitor your blood pressure and bring your blood pressure log at your next appointment with your physician Fall precaution Continue to follow a low salt diet and limited concentrated sweet intake Your carvedilol decreased to 12.5 mg in the morning and 6.25mg at night Admission and Anticipated Discharge Date Admission Date: November 16, 2019 Subjective Pt was seen and examined Sitting in bed with no distress Pt said that he feels back to his baseline He said that he walked in the hallway with physical therapy with no distress He said that his LE swelling does not look worst He had a brief episode of bradycardia in the middle of the night while sleepy Denies any chest pain, palpitation, dizziness and SOB Physical Exam Physical Exam: General- No acute distress Head- atraumatic Eyes- PERRL, EOMI, ENT- oropharynx clear Neck- supple, no JVD Lungs- diminish BS Heart- +regular, no murmur Abdomen- normal bowel sounds, soft, nontender Extremities- no calf tenderness, +edema Neuro- alert, oriented x 3; PERRL, EOMI; no facial palsy; no dysarthria Skin- warm & dry Results & Data ([facility]) Vital Signs (Past 12 Hours) Vital Signs Temp Pulse Pulse Resp BP Pulse Ox 11/18/19 12:00 36.5 C 62 18 165/81 H 92 11/18/19 11:24 40 L 11/18/19 08:01 61 11/18/19 07:40 36.3 C L 58 L 20 141/74 H 96 11/18/19 07:15 76 18 94 11/18/19 03:18 36.7 C 57 L 18 123/65 92 11/18/19 02:23 40 L 11/18/19 01:28 159/74 H 11/18/19 01:14 63 16 95
--- NOTE | 2019-11-18 14:00 | Discharge Summary ---
Date of Service November 18, 2019 Admission HPI Per Admitting Provider History obtained from patient, family, and records. Medical history significant for A. fib status post cardioversion on Coumadin, hypertension, hyperlipidemia, DM 2 on oral medications, BPH, chronic anemia baseline hemoglobin of 13, chronic venous insufficiency on diuretic Rx. Recent confinement October 2011 for pancreatitis. 5 days history of chest congestion, junky cough productive of yellow-green sputum, shortness of breath. No chest pain. No unusual fluid retention/leg swelling. No weight gain as per patient. No known sick contacts. No aspiration. Patient seen at PCPs office 2 days ago. Amoxicillin and Tessalon Perles prescribed for complicated bronchitis. Patient brought to ER by family for worsening symptoms. Patient given Lasix, Nitropaste for possible CHF. Patient does not feel any better. Medical History as above TTE July 2019: EF 55 to 59%. Mild concentric LVH. Left atrial enlargement. Moderate aortic valve sclerosis. 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 Admission Exam Per Admitting Provider GENERAL: Slightly uncomfortable, obese, no respiratory distress SKIN: Pallor , warm HEENT: Alopecia, pale palpebral conjunctivae, no ptosis, dry buccal mucosa NECK : Supple, short neck, no tenderness CHEST : Decreased breath sounds, occasional expiratory wheezes, no tenderness HEART : Irregular , no obvious murmurs ABDOMEN: Some distention, nontender EXTREMITIES : Chronic LE venous stasis, no LE tenderness, no other conspicuous deformities noted NEUROLOGIC : Coherent, no facial asymmetry, no other gross focality Principal Diagnosis SOB (shortness of breath): Pneumonia Bronchitis History Atrial fibrillation Bradycardia Hypertension Diabetes Edema (Swelling) Discharge Exam General- No acute distress Head- atraumatic Eyes- PERRL, EOMI, ENT- oropharynx clear Neck- supple, no JVD Lungs- diminish BS Heart- +regular, no murmur Abdomen- normal bowel sounds, soft, nontender Extremities- no calf tenderness, +edema Neuro- alert, oriented x 3; PERRL, EOMI; no facial palsy; no dysarthria Skin- warm & dry Discharge Data Allergies Allergy/AdvReac Type Severity Reaction Status Date / Time No Known Allergies Allergy Unverified 11/14/19 18:05 Consultations 02/15/20 20:24 ED Decision to Admit Stat 11/14/19 23:16 Consult Case Management - Discharge Planning Routine 11/17/19 03:49 Consult Cardiology Routine Ordered Studies 11/15/19 13:11 CT angio chest PE protocol Stat CT ANGIOGRAM OF THE CHEST CLINICAL HISTORY: Atypical chest pain. COMPARISON STUDY: Chest x-ray dated 11/14/2019. TECHNIQUE: Following the IV administration of 118 cc of Optiray 320, CT angiogram of the chest was performed from the upper abdomen to the thoracic inlet utilizing the pulmonary embolus protocol. Images are reviewed in the axial, sagittal, and coronal planes. 3-D MIPS images are created and assessed. IV contrast was administered without complication. A dose lowering technique was utilized adhering to the principles of ALARA. The examination is significantly compromised by motion artifact. CT DOSE: 744.37 mGy.cm FINDINGS: Thyroid: Imaged portions of the thyroid gland are normal in size and attenuation. Thoracic aorta: There is atherosclerotic calcification of the thoracic aorta, which is normal in caliber and demonstrates bovine variant arch anatomy. No dissection is seen. Pulmonary vasculature: The pulmonary trunk is dilated, measuring 4.3 cm in diameter. This suggests pulmonary artery hypertension. There are no filling defects identified in main, lobar, or proximal segmental pulmonary branches to suggest pulmonary embolus. Evaluation of the peripheral vessels is significantly degraded by motion artifact. Heart: The heart is enlarged and without pericardial effusion. The coronary arteries are densely calcified. Lungs and pleural spaces: Evaluation of the lung parenchyma is significantly compromised by motion artifact. Foci of patchy groundglass consolidation are present within the dependent lower lobes. No pleural effusion is seen. Question secretions within the trachea. Mediastinum: There is no mediastinal lymphadenopathy. Angie: Clear. Axillae: There is no axillary lymphadenopathy. Upper abdomen: Cholecystectomy clips are noted. There is a small hiatal hernia. Skeletal structures: The skeletal structures are osteopenic. No lytic or blastic bony lesions are seen. IMPRESSION: 1. Significantly motion compromised examination. 2. There is no evidence of central pulmonary embolus in the main, lobar, or proximal segmental pulmonary arteries. 3. There are foci of patchy groundglass consolidation seen dependently within the lower lobes. Correlate clinically for evidence of pneumonia/aspiration pneumonitis. 4. Cardiomegaly with evidence of pulmonary artery hypertension. 5. Additional findings as above. ACT 112: Negative or not required by law. Electronically signed by: Christopher Anthony M.D. 11/15/2019 3:58 PM Dictated: 11/15/19 1552 Transcribed: 11/15/19 1552 XR chest 1V portable CLINICAL HISTORY: Dyspnea COMPARISON STUDY: 11/20/2011 FINDINGS: The heart is enlarged. There is no focal pulmonary consolidation. There is no overt failure. There are no pleural effusions.[ IMPRESSION: No active disease in the chest. ACT 112: Negative or not required by law. Electronically signed by: Roman Foley M.D. 11/14/2019 5:50 PM Dictated: 11/14/191749 Transcribed: 11/14/191749 Hospital Course (1) SOB (shortness of breath): Possible Pneumonia Bronchitis Present on admission with cough associated with SOB Failed outpatient management with amoxicillin and tessalon CTA chest showed no PE, but there are foci of patchy ground glass consolidation seen dependently within the lower lobes Received IV solumedrol, lasix and doxycycline in the ER Continue Doxycycline PO BID Saturated well on RA Clinically improves significantly A. fib He brief episode of regan cardiology on board recommended to decrease Carvedilol to 12.5 mg in AM and 6.25mg in PM Continue coumadin with INR 1.4 Received Coumadin 7.5mg yesterday Will instruct pt to take 7.5 mg today Check PT/INR on /Saturday Follow up with the [facility] clinic Bradycardia brief episode of bradycardia Asymptomatic cardiology on board recommended to decrease Carvedilol to 12.5 mg in AM and 6.25mg in PM Case disccussed with cardiology Ok from cardiology standpoint to discharge home Follow up with your cardiology Hypertension BP fluctuated Spironolactone 12.5 mg added yesterday Continue lisinopril, doxazosin, furosemide, carvedilol. Due to LE edema, amlodipine is not a good option for him Continue monitor outpatient BMP Check BMP in 3-5 days to monitor electrolytes and renal function DM 2 Most recent Hba1c 7.5 (11/19) Continue lantus and novolog sliding scale Continue monitor BS EDEMA Continue Lasix 40mg BID and Spironolactone 12.5 mg daily Monitor BMP DVT px on coumadin with INR 1.4 On Lovenox subq as well Code Status Full code Disposition Discharge home today Follow up with your primary care provider within 1 week Follow up with the coumadin clinic to monitor your PT/INR (Check PT/INR or Saturday) Check BMP in 3-5 days to monitor electrolytes and kidney function Monitor your blood pressure and bring your blood pressure log at your next appointment with your physician Fall precaution Continue to follow a low salt diet and limited concentrated sweet intake Your carvedilol decreased to 12.5 mg in the morning and 6.25mg at night Total Time Total Time Spent Total Time Spent (In Minutes): 35 minutes Total Time Includes: Examination of the Patient, Discharge Planning, Medication Reconciliation, Communication With Other Providers and Other Discharge Plan Discharge Items Patient Disposition: Home - Home Health Services Reason For Visit: SOB Discharge Diagnosis: SOB (shortness of breath): Pneumonia Bronchitis History Atrial fibrillation Bradycardia Hypertension Diabetes Edema (Swelling) Activity: Resume your previous activity Non-emergency contact: Primary Care Provider Call non-emergency contact if: you have any medication questions and your temperature is above 101 Follow-up/Referrals: Daniela York MD [Primary Care Provider] - 11/23/19 12:45 pm Diet: Carb Consistent or DM2 and Heart Healthy Addtl Attending Provider Instructions: Follow up with your primary care provider within 1 week Follow up with the coumadin clinic to monitor your PT/INR (Check PT/INR or Saturday) Check BMP in 3-5 days to monitor electrolytes and kidney function since you are just starting on Spironolactone that can increase your potassium level Monitor your blood pressure and bring your blood pressure log at your next appointment with your physician Take coumadin 7.5 mg today (if you did not get it today while in the hospital), then continue 5 mg tomorrow unless the coumadin clinic give you instruction with different doses. Fall precaution Continue to follow a low salt diet and limited concentrated sweet intake Your carvedilol decreased to 12.5 mg in the morning and 6.25mg at night Pending Studies at Discharge: No Stand-Alone Forms: My Depo[employer], Smoking Cessation Medications and DC Order Prescriptions: New doxycycline hyclate 100 mg Capsule 100 mg PO BID 3 Days Qty: 6 RF: 0 spironolactone 25 mg Tablet 12.5 mg PO DAILY 30 Days Qty: 15 RF: 0 carvedilol 12.5 mg tablet 12.5 mg PO QAM Qty: 30 RF: 0 carvedilol 6.25 mg tablet 6.25 mg PO QPM Qty: 30 RF: 0 ipratropium-albuterol 0.5 mg-3 mg(2.5 mg base)/3 mL solution for nebulization 3 ml INH Q6H PRN (Reason: wheezing and SOB) Qty: 90 RF: 0 Continued furosemide 40 mg Tablet 40 mg PO BID RF: 0 metformin 500 mg Tablet 500 mg PO BID RF: 0 atorvastatin 10 mg Tablet 10 mg PO QAM RF: 0 doxazosin 8 mg Tablet 16 mg PO HS RF: 0 lisinopril 40 mg Tablet 40 mg PO QAM RF: 0 glipizide 5 mg Tablet 5 mg PO BID RF: 0 aspirin 81 mg Tablet,Delayed Release (Dr/Ec) 81 mg PO QAM RF: 0 warfarin [Coumadin] 5 mg Tablet 5 mg PO UD RF: 0 Discontinued carvedilol 25 mg Tablet 25 mg PO QAM RF: 0 Discharge Orders: Discharge Order (Routine); Ordered 11/18/19 Ordered By: Jolynn Oliver Admission Data Admit Date/Time: 11/16/19 19:51 Attending Provider: Rosa Daniels I. Admit Provider: Michael Lewis Primary Care Provider: Daniela York Other Providers: Michael Lewis ; Bruce Meraz ; Kevin Braswell ; Fan David ; Erich Mtz ; Tomas Hartley ; Kennedy Porras ; Caryn Villa ; Indiana Mckeon ; Hollis Neville ; Jolynn Oliver
== END 2019-11-18 15:02 | disposition home health service (06) | DRG 202 ==
LOC: ED 17:11 → 2N 17:11 → SUATTDRO 11-16 19:51